=== PATIENT | male | born 1990 | race Caucasian/White ===

== ENCOUNTER 2022-06-01 09:08 | Emergency (ER) | payer OTHER ==
[~2022-06-01] VITALS: Ht 185.4 cm; Wt 74.8 kg
[2022-06-01 09:42] LABS: BASOPHILS ABSOLUTE AUTO 0.04 K/mm3 (0.00-0.23); BASOPHILS PERCENT AUTO 0 % (0-2); EOSINOPHILS ABSOLUTE AUTO 0.01 K/mm3 (0.00-0.68); EOSINOPHILS PERCENT AUTO 0 % (0-6); Hematocrit 47.3 % (37.0-53.0); IMMATURE GRAN ABSOLUTE AUTO 0.07 K/mm3 (0.00-0.10); IMMATURE GRAN PERCENT AUTO 0 % (0-1); LYMPHOCYTES ABSOLUTE AUTO 0.57 K/mm3 (0.84-5.20); LYMPHOCYTES PERCENT AUTO 4 % (21-46); MONOCYTES ABSOLUTE AUTO 1.39 K/mm3 (0.16-1.47); MONOCYTES PERCENT AUTO 9 % (4-13); Mean Corpuscular HGB 34.3 pg (26.0-34.0); Mean Corpuscular HGB Conc 35.9 g/dL (31.5-36.5); Mean Corpuscular Volume 95 fL (80-100); Mean Platelet Volume 11.1 fL (9.1-12.4); NEUTROPHILS ABSOLUTE AUTO 14.22 K/mm3 (1.96-9.15); NEUTROPHILS PERCENT AUTO 87 % (41-73); NRBC ABSOLUTE 0.02 K/mm3 (0.00-0.02); NRBC Auto 0.1 /100 WBC (0.0-0.2); Platelet Count 247 K/mm3 (150-400); RDW Coefficient Variation 11.9 % (11.7-14.2); RDW Standard Deviation 41.4 fL (35.1-46.3); Red Blood Cell Count 4.96 M/mm3 (4.30-5.90)
[2022-06-01 10:01] LABS: Albumin, Blood 5.2 g/dL (3.4-5.0); Albumin/Globulin Ratio 1.1 (0.8-1.8); Bun/Creatinine Ratio 15.5 (12.0-20.0); Calcium, Blood 10.8 mg/dL (8.5-10.1); Creatinine, Blood 1.93 mg/dL (0.60-1.20); Globulin, Blood 4.8 g/dL (2.2-4.0); Potassium, Blood 4.1 mmol/L (3.5-5.5)
[2022-06-01] MEDS ORDERED: FAMO20 PO (12:34)
[2022-06-01] MEDS ORDERED: ONDA4ODT MM (12:34)
== END 2022-06-01 13:05 | disposition home or self-care (01) ==
LOC: ER 09:08
PROVIDERS: Physician Assistant
DX: K29.20 Alcoholic gastritis without bleeding (principal); K70.9 Alcoholic liver disease, unspecified; N17.9 Acute kidney failure, unspecified; E86.0 Dehydration; E87.1 Hypo-osmolality and hyponatremia; E83.42 Hypomagnesemia; F10.20 Alcohol dependence, uncomplicated
CPT/HCPCS: 36415; 80053; 83690; 83735; 85025; J0780; J2405; J3475; J7030

== ENCOUNTER 2022-06-20 04:51 | Emergency (ER) | payer OTHER ==
[~2022-06-20] VITALS: Ht 185.4 cm; Wt 74.8 kg
[~2022-06-20 04:51] MED LIST: FAMO20 PO; ONDA4ODT MM
[2022-06-20 05:23] LABS: BASOPHILS ABSOLUTE AUTO 0.03 K/mm3 (0.00-0.23); BASOPHILS PERCENT AUTO 0 % (0-2); EOSINOPHILS ABSOLUTE AUTO 0.01 K/mm3 (0.00-0.68); EOSINOPHILS PERCENT AUTO 0 % (0-6); Hematocrit 45.1 % (37.0-53.0); Hemoglobin 16.5 g/dL (13.5-17.5); IMMATURE GRAN PERCENT AUTO 1 % (0-1); LYMPHOCYTES ABSOLUTE AUTO 0.34 K/mm3 (0.84-5.20); LYMPHOCYTES PERCENT AUTO 2 % (21-46); MONOCYTES ABSOLUTE AUTO 1.49 K/mm3 (0.16-1.47); MONOCYTES PERCENT AUTO 10 % (4-13); Mean Corpuscular HGB 34.1 pg (26.0-34.0); Mean Corpuscular HGB Conc 36.6 g/dL (31.5-36.5); Mean Corpuscular Volume 93 fL (80-100); Mean Platelet Volume 10.8 fL (9.1-12.4); NEUTROPHILS ABSOLUTE AUTO 13.36 K/mm3 (1.96-9.15); NEUTROPHILS PERCENT AUTO 87 % (41-73); Platelet Count 221 K/mm3 (150-400); RDW Coefficient Variation 11.9 % (11.7-14.2); RDW Standard Deviation 41.1 fL (35.1-46.3); Red Blood Cell Count 4.84 M/mm3 (4.30-5.90); White Blood Cell Count 15.33 K/mm3 (4.00-11.30)
[2022-06-20 05:50] LABS: Alanine Aminotransfer (ALT/SGP 93 U/L (12-78); Albumin, Blood 4.7 g/dL (3.4-5.0); Albumin/Globulin Ratio 1.1 (0.8-1.8); Alk Phos 183 U/L (50-136); Anion Gap 28 mmol/L (6-16); Aspartate Aminotrans (AST/SGOT 83 U/L (12-37); Blood Urea Nitrogen 23 mg/dL (8-24); Bun/Creatinine Ratio 16.5 (12.0-20.0); CO2, Blood 22 mmol/L (21-32); Calcium, Blood 10.1 mg/dL (8.5-10.1); Chloride, Blood 75 mmol/L (98-108); Creatinine, Blood 1.39 mg/dL (0.60-1.20); Ethanol (Alcohol), Blood, Med <3 mg/dL; Globulin, Blood 4.4 g/dL (2.2-4.0); Glomerular Filtration Rate 70 (60-); Glucose, Blood 173 mg/dL (70-99); Potassium, Blood 3.9 mmol/L (3.5-5.5); Sodium, Blood 125 mmol/L (136-145); Total Protein, Blood 9.1 g/dL (6.4-8.2)
[2022-06-20] MEDS ORDERED: ONDA4ODT MM (07:27)
[2022-06-20] MEDS ORDERED: CHLO25 PO (07:27)
[2022-06-20 07:35] VITALS: BP 143/101
[2022-06-21] MEDS ORDERED: PROM12.5S PR (23:35)
== END 2022-06-20 07:38 | disposition home or self-care (01) ==
LOC: ER 04:51
PROVIDERS: Student in an Organized Health Care Education/Training Program
DX: F10.239 Alcohol dependence with withdrawal, unspecified (principal); E86.0 Dehydration; R10.13 Epigastric pain; E87.1 Hypo-osmolality and hyponatremia; R79.89 Other specified abnormal findings of blood chemistry; F17.210 Nicotine dependence, cigarettes, uncomplicated; Y90.0 Blood alcohol level of less than 20 mg/100 ml
CPT/HCPCS: 36415; 80053; 83690; 85025; 93005; 93010; 96361; 96374; 96375; 96376; 99284-25; A9270; G0480; J2060; J2405; J7030

== ENCOUNTER 2022-06-21 19:15 | Emergency (ER) | payer OTHER ==
[~2022-06-21] VITALS: Ht 185.4 cm; Wt 74.8 kg
[~2022-06-21 19:15] MED LIST changes: +CHLO25 PO
[2022-06-21 20:37] LABS: BASOPHILS ABSOLUTE AUTO 0.04 K/mm3 (0.00-0.23); BASOPHILS PERCENT AUTO 1 % (0-2); EOSINOPHILS ABSOLUTE AUTO 0.01 K/mm3 (0.00-0.68); EOSINOPHILS PERCENT AUTO 0 % (0-6); Hematocrit 41.6 % (37.0-53.0); Hemoglobin 15.1 g/dL (13.5-17.5); IMMATURE GRAN ABSOLUTE AUTO 0.04 K/mm3 (0.00-0.10); IMMATURE GRAN PERCENT AUTO 1 % (0-1); LYMPHOCYTES ABSOLUTE AUTO 0.93 K/mm3 (0.84-5.20); LYMPHOCYTES PERCENT AUTO 12 % (21-46); MONOCYTES PERCENT AUTO 10 % (4-13); Mean Corpuscular HGB Conc 36.3 g/dL (31.5-36.5); Mean Corpuscular Volume 94 fL (80-100); Mean Platelet Volume 11.4 fL (9.1-12.4); NEUTROPHILS ABSOLUTE AUTO 6.28 K/mm3 (1.96-9.15); NEUTROPHILS PERCENT AUTO 78 % (41-73); Platelet Count 157 K/mm3 (150-400); RDW Coefficient Variation 11.9 % (11.7-14.2); RDW Standard Deviation 41.4 fL (35.1-46.3); Red Blood Cell Count 4.44 M/mm3 (4.30-5.90)
[2022-06-21 20:56] LABS: Albumin/Globulin Ratio 1.1 (0.8-1.8); Bilirubin, Total 1.3 mg/dL (0.1-1.0); Bun/Creatinine Ratio 25.8 (12.0-20.0); Calcium, Blood 9.7 mg/dL (8.5-10.1); Creatinine, Blood 0.58 mg/dL (0.60-1.20); Globulin, Blood 3.8 g/dL (2.2-4.0); Potassium, Blood 3.1 mmol/L (3.5-5.5); Total Protein, Blood 7.8 g/dL (6.4-8.2)
[2022-06-21] MEDS ORDERED: PROM12.5S PR (23:35)
[2022-06-21 23:45] VITALS: BP 143/99
== END 2022-06-21 23:47 | disposition home or self-care (01) ==
LOC: ER 19:15
PROVIDERS: Student in an Organized Health Care Education/Training Program
DX: R11.2 Nausea with vomiting, unspecified (principal); F17.210 Nicotine dependence, cigarettes, uncomplicated
CPT/HCPCS: 36415; 80053; 85025; 96361; 96374; 99283-25; J2550; J7030

== ENCOUNTER 2022-08-25 07:51 | Emergency (ER) | payer OTHER ==
[~2022-08-25] VITALS: Ht 177.8 cm; Wt 77.1 kg
[~2022-08-25 07:51] MED LIST changes: +PROM12.5S PR
[2022-08-25 08:26] LABS: BASOPHILS ABSOLUTE AUTO 0.06 K/mm3 (0.00-0.23); BASOPHILS PERCENT AUTO 0 % (0-2); EOSINOPHILS PERCENT AUTO 0 % (0-6); Hematocrit 45.7 % (37.0-53.0); Hemoglobin 16.6 g/dL (13.5-17.5); IMMATURE GRAN ABSOLUTE AUTO 0.07 K/mm3 (0.00-0.10); IMMATURE GRAN PERCENT AUTO 1 % (0-1); LYMPHOCYTES ABSOLUTE AUTO 0.66 K/mm3 (0.84-5.20); LYMPHOCYTES PERCENT AUTO 5 % (21-46); MONOCYTES ABSOLUTE AUTO 1.16 K/mm3 (0.16-1.47); MONOCYTES PERCENT AUTO 8 % (4-13); Mean Corpuscular HGB 32.6 pg (26.0-34.0); Mean Corpuscular HGB Conc 36.3 g/dL (31.5-36.5); Mean Corpuscular Volume 90 fL (80-100); Mean Platelet Volume 10.4 fL (9.1-12.4); NEUTROPHILS ABSOLUTE AUTO 12.61 K/mm3 (1.96-9.15); NEUTROPHILS PERCENT AUTO 87 % (41-73); Platelet Count 279 K/mm3 (150-400); RDW Standard Deviation 39.6 fL (35.1-46.3); Red Blood Cell Count 5.09 M/mm3 (4.30-5.90); White Blood Cell Count 14.56 K/mm3 (4.00-11.30)
[2022-08-25 08:44] LABS: Albumin, Blood 4.5 g/dL (3.4-5.0); Bun/Creatinine Ratio 14.9 (12.0-20.0); Creatinine, Blood 0.81 mg/dL (0.60-1.20); Globulin, Blood 4.3 g/dL (2.2-4.0); Potassium, Blood 3.6 mmol/L (3.5-5.5); Total Protein, Blood 8.8 g/dL (6.4-8.2)
[2022-08-25 10:30] VITALS: BP 150/94
[2022-08-25] MEDS ORDERED: CHLO10 PO (10:33)
[2022-08-25] MEDS ORDERED: ONDA4ODT MM (10:33)
== END 2022-08-25 10:54 | disposition home or self-care (01) ==
LOC: ER 07:51
PROVIDERS: Emergency Medicine
DX: F10.239 Alcohol dependence with withdrawal, unspecified (principal); Y90.0 Blood alcohol level of less than 20 mg/100 ml; E87.20 Acidosis, unspecified; Z79.899 Other long term (current) drug therapy; F17.210 Nicotine dependence, cigarettes, uncomplicated
CPT/HCPCS: 80053; 83690; 83735; 85025; 96361; 96374; 96375; 96376; 99284-25; G0480; J2060; J2405; J7030

== ENCOUNTER 2023-08-21 09:20 | Emergency (ER) | payer OTHER ==
[~2023-08-21] VITALS: Ht 185.4 cm; Wt 74.8 kg
[~2023-08-21 09:20] MED LIST changes: +CHLO10 PO
[2023-08-21 09:56] VITALS: BP 140/99
== END 2023-08-21 09:56 | disposition home or self-care (01) ==
LOC: ER 09:20
DX: S96.912A Strain of unspecified muscle and tendon at ankle and foot level, left foot, initial encounter (principal); X50.1XXA Overexertion from prolonged static or awkward postures, initial encounter; Z79.899 Other long term (current) drug therapy; F17.210 Nicotine dependence, cigarettes, uncomplicated
CPT/HCPCS: 99283

== ENCOUNTER 2023-09-03 06:54 | Emergency (ER) | payer OTHER ==
[~2023-09-03] VITALS: Ht 185.4 cm; Wt 74.8 kg
[2023-09-03] MEDS ORDERED: Thiamine HCl 100 MG Tab PO ONE (07:15)
[2023-09-03] MEDS ORDERED: Folic Acid 1 MG TAB PO ONE (07:15)
[2023-09-03] MEDS ORDERED: NS 1,000 ML IV SCH (07:15)
[2023-09-03] MEDS ORDERED: Ondansetron HCl 2 MG / ML 2ML Vial IV ONE (07:15)
[2023-09-03 07:42] LABS: BASOPHILS ABSOLUTE AUTO 0.07 K/mm3 (0.00-0.23); BASOPHILS PERCENT AUTO 1 % (0-2); EOSINOPHILS ABSOLUTE AUTO 0.01 K/mm3 (0.00-0.68); EOSINOPHILS PERCENT AUTO 0 % (0-6); Hematocrit 50.2 % (37.0-53.0); Hemoglobin 17.4 g/dL (13.5-17.5); IMMATURE GRAN ABSOLUTE AUTO 0.03 K/mm3 (0.00-0.10); IMMATURE GRAN PERCENT AUTO 0 % (0-1); LYMPHOCYTES ABSOLUTE AUTO 0.75 K/mm3 (0.84-5.20); LYMPHOCYTES PERCENT AUTO 9 % (21-46); MONOCYTES ABSOLUTE AUTO 0.56 K/mm3 (0.16-1.47); MONOCYTES PERCENT AUTO 7 % (4-13); Mean Corpuscular HGB 33.9 pg (26.0-34.0); Mean Corpuscular HGB Conc 34.7 g/dL (31.5-36.5); Mean Corpuscular Volume 98 fL (80-100); NEUTROPHILS ABSOLUTE AUTO 7.16 K/mm3 (1.96-9.15); NEUTROPHILS PERCENT AUTO 84 % (41-73); Platelet Count 190 K/mm3 (150-400); RDW Standard Deviation 43.8 fL (35.1-46.3); Red Blood Cell Count 5.14 M/mm3 (4.30-5.90); White Blood Cell Count 8.58 K/mm3 (4.00-11.30)
[2023-09-03 08:12] LABS: Albumin, Blood 4.1 g/dL (3.4-5.0); Bilirubin, Direct 0.2 mg/dL (0.0-0.3); Bilirubin, Indirect 0.6 mg/dL (0.1-0.7); Bilirubin, Total 0.8 mg/dL (0.1-1.0); Bun/Creatinine Ratio 10.7 (12.0-20.0); Creatinine, Blood 0.66 mg/dL (0.60-1.20); Globulin, Blood 4.2 g/dL (2.2-4.0); Magnesium, Blood 1.6 mg/dL (1.6-2.4); Potassium, Blood 3.1 mmol/L (3.5-5.5); Total Protein, Blood 8.3 g/dL (6.4-8.2)
[2023-09-03] MEDS ORDERED: Famotidine 10 MG/ML 2ML Vial IV ONE (08:35)
[2023-09-03] MEDS ORDERED: Potassium Chloride 20 MEQ TabCR PO ONE (08:35)
[2023-09-03] MEDS ORDERED: Droperidol 5 mg/2 ml Vial IV ONE (09:20)
[2023-09-03] MEDS ORDERED: FAMO20 PO (10:38)
[2023-09-03] MEDS ORDERED: METO10 PO (10:38)
[2023-09-03] MEDS ORDERED: ONDA4ODT MM (10:38)
[2023-09-03 10:45] VITALS: BP 135/84
== END 2023-09-03 10:52 | disposition home or self-care (01) ==
LOC: ER 06:54
PROVIDERS: Student in an Organized Health Care Education/Training Program
DX: R11.2 Nausea with vomiting, unspecified (principal); F12.90 Cannabis use, unspecified, uncomplicated; K29.70 Gastritis, unspecified, without bleeding; F10.90 Alcohol use, unspecified, uncomplicated; E87.6 Hypokalemia; R74.01 Elevation of levels of liver transaminase levels; F17.210 Nicotine dependence, cigarettes, uncomplicated; Z79.899 Other long term (current) drug therapy
CPT/HCPCS: 80048; 80076; 83690; 83735; 85025; 96361; 96374; 96375; 99284-25; A9270; J1790; J2405; J7030

== ENCOUNTER 2023-09-23 08:29 | Emergency (ER) | payer OTHER ==
[~2023-09-23] VITALS: Ht 185.4 cm; Wt 74.8 kg
[~2023-09-23 08:29] MED LIST changes: +METO10 PO
[2023-09-23] MEDS ORDERED: IBUP600 PO (09:50)
[2023-09-23] MEDS ORDERED: Norco 5-325 Ta1 EACH PO (09:50)
[2023-09-23 10:14] VITALS: BP 150/90
== END 2023-09-23 10:15 | disposition home or self-care (01) ==
LOC: ER 08:29
DX: M25.572 Pain in left ankle and joints of left foot (principal); F17.210 Nicotine dependence, cigarettes, uncomplicated; Z79.899 Other long term (current) drug therapy
CPT/HCPCS: 73610; 99283-25

== ENCOUNTER 2024-01-26 10:02 | Inpatient (IN) | payer OTHER ==
[~2024-01-26] VITALS: Ht 185.4 cm; Wt 83.0 kg
[2024-01-26] VITALS (16 sets, daily range): BP systolic 100–135; BP diastolic 59–90
[~2024-01-26 10:02] MED LIST changes: +IBUP600 PO; +Norco 5-325 Ta1 EACH PO
[2024-01-26] MEDS ORDERED: Ondansetron HCl 2 MG / ML 2ML Vial IV PRN ×2 (11:10→16:55)
[2024-01-26 11:50] LABS: BASOPHILS ABSOLUTE AUTO 0.16 K/mm3 (0.00-0.23); BASOPHILS PERCENT AUTO 1 % (0-2); EOSINOPHILS ABSOLUTE AUTO 0.02 K/mm3 (0.00-0.68); EOSINOPHILS PERCENT AUTO 0 % (0-6); Hematocrit 35.5 % (37.0-53.0); Hemoglobin 13.3 g/dL (13.5-17.5); IMMATURE GRAN PERCENT AUTO 1 % (0-1); LYMPHOCYTES ABSOLUTE AUTO 0.83 K/mm3 (0.84-5.20); LYMPHOCYTES PERCENT AUTO 5 % (21-46); MONOCYTES ABSOLUTE AUTO 1.39 K/mm3 (0.16-1.47); MONOCYTES PERCENT AUTO 8 % (4-13); Mean Corpuscular HGB 37.2 pg (26.0-34.0); Mean Corpuscular HGB Conc 37.5 g/dL (31.5-36.5); Mean Corpuscular Volume 99 fL (80-100); NEUTROPHILS PERCENT AUTO 86 % (41-73); NRBC ABSOLUTE 0.03 K/mm3 (0.00-0.02); NRBC Auto 0.2 /100 WBC (0.0-0.2); Platelet Count 161 K/mm3 (150-400); Red Blood Cell Count 3.58 M/mm3 (4.30-5.90)
[2024-01-26 12:11] LABS: International Normalized Ratio 1.54
[2024-01-26 12:20] LABS: Albumin, Blood 2.3 g/dL (3.4-5.0); Albumin/Globulin Ratio 0.5 (0.8-1.8); Bun/Creatinine Ratio 14.9 (12.0-20.0); Calcium, Blood 8.3 mg/dL (8.5-10.1); Creatinine, Blood 0.47 mg/dL (0.60-1.20); Globulin, Blood 4.4 g/dL (2.2-4.0); Potassium, Blood 2.5 mmol/L (3.5-5.5); Total Protein, Blood 6.7 g/dL (6.4-8.2)
[2024-01-26] MEDS ORDERED: CefTRIAXone Sodium 2,000 MG in NS 100 ML IV ONE (12:50)
[2024-01-26] MEDS ORDERED: Pantoprazole Sodium 40 MG Injection IV ONE ×2 (12:50→17:50)
[2024-01-26] MEDS ORDERED: Octreotide Acetate 500 MCG in NS 250 ML IV SCH (13:00)
[2024-01-26] MEDS ORDERED: FentaNYL Citrate 50 MCG/ML 2 ML Injection IV ONE (13:10)
[2024-01-26] MEDS ORDERED: Octreotide Acetate 50 MCG in NS 50 ML IV ONE (13:20)
[2024-01-26] MEDS ORDERED: Ondansetron HCl 2 MG / ML 2ML Vial IV ONE (13:55)
[2024-01-26] MEDS ORDERED: Potassium Chloride 60 MEQ IV SCH (14:10)
[2024-01-26] MEDS ORDERED: Potassium Chl 20MEQ/Water100ML 100 ML IV SCH (14:15)
[2024-01-26] MEDS ORDERED: FLU VACC TS2024-25(6MOS UP)/PF 45 MCG/0.5 ML SYRINGE IM ONE (14:30)
[2024-01-26] MEDS ORDERED: Lactated Ringer's 1,000 ML IV ONE (14:35)
[2024-01-26] MEDS ORDERED: Lactated Ringer's 1,000 ML IV SCH ×2 (14:35→18:55)
[2024-01-26] MEDS ORDERED: Pantoprazole Sodium 40 MG in NS 50 ML IV SCH ×2 (14:35→17:55)
[2024-01-26] MEDS ORDERED: LORazepam 2 MG/ML 1ML Injection IV PRN ×3 (16:55→17:00)
[2024-01-26] MEDS ORDERED: ChlordiazePOXIDE 25 MG Cap PO PRN ×2 (16:55→17:00)
[2024-01-26 17:36] LABS: Hematocrit 31.4 % (37.0-53.0); Hemoglobin 11.7 g/dL (13.5-17.5)
[2024-01-26] MEDS ORDERED: Folic Acid 1 MG in NS 50 ML IV SCH (18:00)
--- NOTE | 2024-01-26 18:24 | NUR ---
LACTIC OF 8.5, SECOND BAG OF LR RUNNING AT THIS TIME. DR. GIORDANO NOTIFIED. INTERIOR DESIGN PROFESSOR NOTIFIED.
--- NOTE | 2024-01-26 18:44 | NUR ---
SHIFT SUMMARY ASSUMED CARE OF THIS PATIENT AT 1630. PATIENTARRIVED FROM THE ED ON A GUARNY. PATIENT SAT UP AT THE EDGE OF THE BED AND WAS ABLE TO STAND AND TRANSFER TO PCU BED. PATIENT STATED HE FEELS WEAK AND UNSTEADY. PATIENT HAS REMAINED IN BED SINCE ARRIVAL. TELE IN PLACE, SINUS TACH ON THE MONITOR. PATIENT VOMITTING BRIGHT RED BLOOD X8 SINCE ARRIVING FROM THE ED. DR. HERNANDEZ NOTIFIED OF PATIENT CONDITION AND SHOWN EMESIS. DAY SURGERY CALLED THIS RN TO GET REPORT ON PATIENT, HE IS TO GO TO THE OR STAT. PATIENT MOM AT BEDSIDE, CALL LIGHT IN REACH, WILL CONTINUE TO TREAT,
[2024-01-26] MEDS ORDERED: EpiNEPhrine 1 MG/1 ML 1ML Vial ONE (18:46)
[2024-01-26] MEDS ORDERED: propofoL 20 ML IV ONE (18:56)
[2024-01-26] MEDS ORDERED: Dexamethasone Sod Phos 10 MG/ML 1ML VIAL ONE (18:56)
[2024-01-26] MEDS ORDERED: Ondansetron HCl 2 MG / ML 2ML Vial ONE (18:56)
[2024-01-26] MEDS ORDERED: Rocuronium Bromide 10 MG/ML 5ML Injection IV ONE (18:56)
[2024-01-26] MEDS ORDERED: Lidocaine HCl 2% 20 ML MDV ONE (18:56)
[2024-01-26] MEDS ORDERED: FentaNYL Citrate 50 MCG/ML 2 ML Injection ONE ×2 (18:57→20:12)
[2024-01-26] MEDS ORDERED: Sugammadex Sodium 200 MG/2ML SDV (100 MG/ML) ONE (18:57)
--- NOTE | 2024-01-26 19:08 | NUR ---
NURSE NOTE PATIENT TO DAY SURGERY.
[2024-01-26] MEDS ORDERED: Dexmedetomidine HCL 200 MCG / 2 ML ONE (19:16)
--- NOTE | 2024-01-26 19:16 | NUR ---
NURSE NOTE REPORT GIVEN TO BENJAMÍN ALEXANDER.
[2024-01-26] MEDS ORDERED: Phenylephrine HCl 100 MCG/ML-NS 10MLSYR (1MG/10ML) ONE (19:29)
--- NOTE | 2024-01-26 19:53 | NUR ---
01/26/241952 Jo Pedro History, Chart, Medications and Allergies reviewed before start of procedure. 3-LEAD EKG REVIEWED WITH PHYSICIAN PRIOR TO START OF PROCEDURE. MONITOR INTACT WITH CONTINUOUS PULSE OXIMETRY, CONTINUOUS END TITAL CO2, AND INTERMITTENT BLOOD PRESSURE. SEE ANESTHESIA NOTES. PROCEDURE DONE IN OR #2.
[2024-01-26] MEDS ORDERED: dexmedeTOMIDine 100 ML IV SCH (20:05)
[2024-01-26] MEDS ORDERED: Thiamine HCl 500 MG in NS 100 ML IV SCH (21:00)
[2024-01-26] MEDS ORDERED: Sodium Chloride 0.45% 1,000 ML IV SCH (22:00)
--- NOTE | 2024-01-26 22:40 | NUR ---
ARRIVAL TO ICU PT ARRIVED TO ICU 5 AT 2030 FROM DAY SURGERY AFTER HAVING AN UPPER SCOPE PROCEDURE. HE IS HERE FOR GI BLEED AND WAS ABLE TO MOVE HIMSELF OVER FROM THE ED BED TO ICU BED. HE IS ORIENTED X4 BUT SOMNULENT FROM PROCEDURE; HE WAKES TO VERBAL STIMULI; DR HERNANDEZ WANTS PRECEDEX STARTED TO MANAGE WITHDRAWL SYMPTOMS AND RECOMMENDED AVOIDING (IF ABLE) NARCOTICS AND BENZOS D/T LIVER FUNTION; PRECEDEX STARTED AT 0.1MCG/KG/HR; RASS -1; CIWA 7. SPO2 >95% ON 3L NC. AFEBRILE. HR 80-90'S. SBP 100-110, WITH MAP >65. ONE EPISODE OF EMESIS UPON ARRIVAL TO ICU THAT WAS BRIGHT RED IN COLOR MIXED WITH MUCUS; NAUSEA MORE MILD NOW BUT STILL PRESENT; MOD TO SEVERE FIRM ABD DISTENTION; DR HERNANDEZ STATED TO PLAN FOR A PARACENTESIS TOMORROW. MILD JAUNDICED NOTED ALONG WITH SCLERAL EDEMA. OCTREOTIDE AND PROTONIX INFUSING. 1/2 NS STARTED AT 100ML/HR. KCL INFUSION COMPLETED NOW. ADDITIONAL IV ESTABLISHED D/T MED COMPATABILITIES. SEE SHIFT ASSESSMENT FOR FULL ASSESSMENT.
[2024-01-26 23:58] LABS: Calcium, Blood 7.2 mg/dL (8.5-10.1); Creatinine, Blood 0.53 mg/dL (0.60-1.20); Magnesium, Blood 1.5 mg/dL (1.6-2.4); Potassium, Blood 3.6 mmol/L (3.5-5.5)
[2024-01-27] VITALS (30 sets, daily range): BP systolic 96–128; BP diastolic 64–95
[2024-01-27 00:03] LABS: Hematocrit 26.1 % (37.0-53.0)
[2024-01-27] MEDS ORDERED: Metoclopramide HCl 5MG / ML 2ML Vial IV PRN (03:30)
[2024-01-27 03:44] LABS: BASOPHILS ABSOLUTE AUTO 0.04 K/mm3 (0.00-0.23); BASOPHILS PERCENT AUTO 0 % (0-2); EOSINOPHILS ABSOLUTE AUTO 0.14 K/mm3 (0.00-0.68); EOSINOPHILS PERCENT AUTO 1 % (0-6); Hematocrit 27.3 % (37.0-53.0); Hemoglobin 10.2 g/dL (13.5-17.5); IMMATURE GRAN ABSOLUTE AUTO 0.09 K/mm3 (0.00-0.10); IMMATURE GRAN PERCENT AUTO 1 % (0-1); LYMPHOCYTES ABSOLUTE AUTO 0.43 K/mm3 (0.84-5.20); LYMPHOCYTES PERCENT AUTO 4 % (21-46); MONOCYTES ABSOLUTE AUTO 0.34 K/mm3 (0.16-1.47); MONOCYTES PERCENT AUTO 3 % (4-13); Mean Corpuscular HGB Conc 37.4 g/dL (31.5-36.5); Mean Corpuscular Volume 99 fL (80-100); Mean Platelet Volume 12.1 fL (9.1-12.4); NEUTROPHILS ABSOLUTE AUTO 11.06 K/mm3 (1.96-9.15); NEUTROPHILS PERCENT AUTO 91 % (41-73); NRBC ABSOLUTE 0.02 K/mm3 (0.00-0.02); NRBC Auto 0.2 /100 WBC (0.0-0.2); Platelet Count 91 K/mm3 (150-400); RDW Coefficient Variation 18.8 % (11.7-14.2); RDW Standard Deviation 67.1 fL (35.1-46.3); Red Blood Cell Count 2.76 M/mm3 (4.30-5.90)
[2024-01-27 04:00] LABS: International Normalized Ratio 1.67; Prothrombin Time Results 17.2 Sec (9.7-11.5)
[2024-01-27 04:08] LABS: Albumin, Blood 1.8 g/dL (3.4-5.0); Albumin/Globulin Ratio 0.5 (0.8-1.8); Bilirubin, Total 13.7 mg/dL (0.1-1.0); Bun/Creatinine Ratio 20.7 (12.0-20.0); Calcium, Blood 7.5 mg/dL (8.5-10.1); Creatinine, Blood 0.58 mg/dL (0.60-1.20); Globulin, Blood 3.5 g/dL (2.2-4.0); Potassium, Blood 3.4 mmol/L (3.5-5.5); Total Protein, Blood 5.3 g/dL (6.4-8.2)
--- NOTE | 2024-01-27 06:46 | NUR ---
END OF SHIFT SUMMARY NO ACUTE EVENTS OVERNIGHT. PT SLEPT WHEN NOT STIMULATED. HE CONT TO BE A/O X4 AND ABLE TO MAKE HIS NEEDS KNOWN; CIWA 9-18; PRECEDEX INFUSING AT 0.2MCG/KG/HR. SPO2 > 94% ON 3L NC. AFEBRILE. HR 80'S. SBP 110'S. NAUSEA CONT WITH MILD IMPROVEMENT AFTER ZOFRAN AND REGLAN; TOLERATING SMALL SIPS OF WATER WELL; NO EPISODES OF EMESIS SINCE ARRIVAL TO ICU; ABD CONT TO BE DISTENDED. BLADDER SCANNED ONCE AND READ 489; ENCOURAGED PT TO USE URINAL WHICH HE WAS SUCCESSFUL; DARK BROWN LIKE OUTPUT. CONT TO BE JAUNDICED. PROTONIX AND OCTRIOTIDE INFUSING. 1/2NS INFUSING AT 100ML/HR. WILL REPORT TO AM RN WHEN AVAILABLE.
[2024-01-27] MEDS ORDERED: NS 250 ML IV PRN (08:40)
[2024-01-27] MEDS ORDERED: CefTRIAXone Sodium 1,000 MG in NS 100 ML IV SCH (09:00)
[2024-01-27] MEDS ORDERED: Potassium Chl 20MEQ/Water100ML 100 ML IV STA (09:46)
[2024-01-27] MEDS ORDERED: FentaNYL Citrate 50 MCG/ML 2 ML Injection IV PRN (12:00)
[2024-01-27] MEDS ORDERED: Promethazine HCl 25 MG Tab PO PRN (12:00)
--- NOTE | 2024-01-27 18:13 | NUR ---
SHIFT SUMMARY CIWA HIGH OF 11 TODAY. PRECEDEX UTILIZED. MEDICATED MULTIPLE TIMES FOR NAUSEA AND EMESIS, PHENEGRAN ADDED WITH GOOD EFFECT. PATIENT AND MOTHER INFORMED THIS RN THAT PATIRYANN HAS A HISTORY OF BIPOLAR DISORDER AND DEPRESSION, PATIENT STOPPED TAKING MEDS DUE TO SIDE EFFECTS. PATIENT IS EXPRESSING INTREST IN A DUAL PSYCH AND ETOH WITHDRAWL INPATIENT PROGRAM AFTER DISCHARGE. CASE MANAGEMENT INVOLVED, SEEN BY ADAPT, PSYCH CONSULT PLACED. NO SIGNS OF ACTIVE BLEED, H/H STABLE. URINE OUTPUT LOW AND VERY CONCENTRATED.
[2024-01-28] VITALS (22 sets, daily range): BP systolic 101–157; BP diastolic 61–106
[2024-01-28 03:50] LABS: BASOPHILS ABSOLUTE AUTO 0.03 K/mm3 (0.00-0.23); BASOPHILS PERCENT AUTO 0 % (0-2); EOSINOPHILS ABSOLUTE AUTO 0.03 K/mm3 (0.00-0.68); EOSINOPHILS PERCENT AUTO 0 % (0-6); Hematocrit 27.8 % (37.0-53.0); Hemoglobin 10.3 g/dL (13.5-17.5); IMMATURE GRAN ABSOLUTE AUTO 0.06 K/mm3 (0.00-0.10); IMMATURE GRAN PERCENT AUTO 1 % (0-1); LYMPHOCYTES ABSOLUTE AUTO 0.78 K/mm3 (0.84-5.20); LYMPHOCYTES PERCENT AUTO 6 % (21-46); MONOCYTES ABSOLUTE AUTO 0.93 K/mm3 (0.16-1.47); MONOCYTES PERCENT AUTO 7 % (4-13); Mean Corpuscular HGB 36.9 pg (26.0-34.0); Mean Corpuscular HGB Conc 37.1 g/dL (31.5-36.5); Mean Corpuscular Volume 100 fL (80-100); Mean Platelet Volume 12.5 fL (9.1-12.4); NEUTROPHILS ABSOLUTE AUTO 10.87 K/mm3 (1.96-9.15); NEUTROPHILS PERCENT AUTO 86 % (41-73); NRBC ABSOLUTE 0.04 K/mm3 (0.00-0.02); NRBC Auto 0.3 /100 WBC (0.0-0.2); Platelet Count 86 K/mm3 (150-400); RDW Coefficient Variation 18.5 % (11.7-14.2); RDW Standard Deviation 67.2 fL (35.1-46.3); Red Blood Cell Count 2.79 M/mm3 (4.30-5.90)
[2024-01-28 04:02] LABS: International Normalized Ratio 1.92; Prothrombin Time Results 19.6 Sec (9.7-11.5)
[2024-01-28 04:25] LABS: Albumin, Blood 1.7 g/dL (3.4-5.0); Albumin/Globulin Ratio 0.5 (0.8-1.8); Bilirubin, Total 14.3 mg/dL (0.1-1.0); Calcium, Blood 7.3 mg/dL (8.5-10.1); Creatinine, Blood 0.6 mg/dL (0.60-1.20); Globulin, Blood 3.2 g/dL (2.2-4.0); Potassium, Blood 3.4 mmol/L (3.5-5.5); Total Protein, Blood 4.9 g/dL (6.4-8.2)
--- NOTE | 2024-01-28 06:29 | NUR ---
END OF SHIFT SUMMARY NO ACUTE EVENTS OVERNIGHT. HE WAS ABLE TO SLEEP FOR MOST OF THE NIGHT BUT WOKE EASILY TO VERBAL STIMULI; CONT TO BE A/O X4 AND ABLE TO MAKE HIS NEEDS KNOWN; PRECEDEX INFUSING AT 0.2MCG/KG/HR; CIWA CONSISTANTLY 11 T/O THE NIGHT. SPO2 >95% ON 4L NC. AFEBRILE. HR 70'S; WITH ACTIVITY, HR INCREASES TO 130'S. SBP 110-120'S. MILD NAUSEA NOTED ALL NIGHT; PRN GIVEN AND MILDLY HELPFUL; NO EPISODES OF EMESIS THIS SHIFT; CONT TO TOLERATE WATER SUCCESSFULLY. PT ABLE TO USE URINAL INDEPENDENTLY. JAUNDICE NOTED T/O. PROTONIX AND OCTRIOTIDE INFUSING. 1/2NS INFUSING AT 100ML/HR. WILL REPORT TO AM RN WHEN AVAILABLE.
--- NOTE | 2024-01-28 08:00 | NUR ---
AM NOTE... ASSUMED CARE OF PT AT 0700, PT IS A&Ox4 CURRENTLY HE IS IN SR/ST 90'S-100'S BP IS STABLE. PT WAS ON 4L NC WITH O2 SATS 85-89% O2 WAS INCREASED TO 6L NC WITH O2 SATS >90%. L/S ARE CLEAR AND DIM T/O, NO CRACKELS/RHONCHI NOTED. I.S. WAS GIVEN TO THE PT AND PT EDUCATED AND ENCOURAGED TO USE FREQUENTLY. BT PRESENT AND HYPOACTIVE, ABD IS FIRM AND TENDER TO PALPATION WITH MODERATE DISTENTION. PT C/O OF NAUSEA WITH NO VOMITING AT THIS TIME. PT IS ON PRECEDEX DRIP RUNNING AT 0.2MCG/KG/HR, PT C/O OF A 7/10 HEADACHE AND IS SLIGHTLY TREMULOUS. PROVIDER WAS AT THE BEDSIDE TO ASSESS THE PT, SHE WAS UPDATED ON THE PT'S INCREASED O2 NEEDS, NEW ORDERS TO D/C THE FLUIDS AND TO CONTINUE TO MONITOR AT THIS TIME. WILL CONTINUE TO MONITOR.
[2024-01-28] MEDS ORDERED: Potassium Chl 20MEQ/Water100ML 100 ML IV STA (09:08)
[2024-01-28] MEDS ORDERED: Fluticasone 0.05% Nasal Spray SCH (11:30)
[2024-01-28] MEDS ORDERED: Furosemide 10 MG/ML 4ML Vial IV ONE (14:55)
[2024-01-28] MEDS ORDERED: Prochlorperazine Edisylate 10 mg Vial IV PRN (16:35)
--- NOTE | 2024-01-28 16:41 | NUR ---
PROVIDER AT THE BEDSIDE... GI PROVIDER AT THE BEDSIDE TO ASSESS THE PT, NEW ORDERS FOR COMPAZINE GIVEN, PER PROVIDER THE PT NEEDS TO BE CAREFUL WITH PO INTAKE D/T POSITIVE FLUID BALANCE. WILL CONTINUE TO MONITOR.
[2024-01-28 17:14] LABS: Bun/Creatinine Ratio 14.5 (12.0-20.0); Calcium, Blood 7.9 mg/dL (8.5-10.1); Creatinine, Blood 0.69 mg/dL (0.60-1.20); Potassium, Blood 2.9 mmol/L (3.5-5.5)
--- NOTE | 2024-01-28 17:20 | NUR ---
SHIFT SUMMARY PT IS A&OX4, RESPONDING AND CALLING APPROPRIATLY. BECOMING INCREASING AGITATED AND ANXIOUS T/O THIS SHIFT. LAST CIWA SCORE 26. TREMULOUS AND DIAPHORETIC. C/O HEADACHE T/O SHIFT, MEDICATED PER EMAR WITH RELIEF. WARM BLANKET TO FEET AND COLD CLOTH TO BACK OF NECK TO HELP WELL. ON CONTINUOUS VERMIN EXTERMINATOR, HR 80-90'S WHILE LYING DOWN. HR 130'S WHEN OOB. MAPS > 65. L/S CLEAR AND DIM. ON 6L NC WITH SATS IN THE LOW 90'S. REPORTS INTERMITTENT SOB. INCENTIVE SPIROMETER PROVIDED AND ENCOURAGED TO USE. NOT TOLERATING PO INTAKE, N/V X4 TODAY, MEDICATED PER EMAR WITH SOME RELIEF. NO BLOOD IN EMESIS. STOOL X1 THIS SHIFT. USES URINAL AT BEDSIDE INDEPENDENTLY. DIURESED X1 THIS SHIFT. PG PLACED AND PATENT.
[2024-01-28] MEDS ORDERED: Potassium Chl 20MEQ/Water100ML 100 ML IV SCH (17:55)
[2024-01-28] MEDS ORDERED: LORazepam 2 MG/ML 1ML Injection IV PRN (17:55)
[2024-01-28] MEDS ORDERED: QUEtiapine Fumarate 50 MG TAB PO ONE (20:05)
--- NOTE | 2024-01-28 23:23 | NUR ---
UPDATE ASSUMED CARE OF PT AT 1900, PT AWAKE AND ALERT, RESTLESS, TALKING TO UNSEEN OTHERS IN ROOM, HEARING PARENTS OUTSIDE OF ROOM AND SEEING SPOTS OF BLOOD ON HIS BLANKET, ORIENTED TO SELF ONLY, FOLLOWS COMMANDS, NEEDS FREQUENT REORIENTATION AND REDIRECTION, PT IMPULSIVE, GETTING OUT OF BED AND PULLING ON LINES,VSS, AFEBRILE,O2 AT 6LPM NC, MEDICATED WITH 25 MCG FENTANYL FOR HEADACHE RATED AT 8 ON SCALE OF 0-10 AT 1940 PARTIALLY EFFECTIVE, NOTIFIED WITH NEW ORDERS RECEIVED, CIWA 26 AT BEGINNING OF SHIFT, MEDICATED WITH 50 MG SEROQUEL PO, PT SWALLOWED WITHOUT DIFFICULTY, PRECEDEX INFUSING AT 0.7 MCG/KG/HR, PROTONIX INFUSING AT 8MG/HR, OCTREOTIDE INFUSING AT 25 ML/HR, KCL REPLACEMENT INFUSING PER ORDERS, PIV TO RIGHT AC, RIGHT HAND, AND POWERGLIDE TO LEFT UPPER ARM PATENT, VOIDS IN URINAL 150 ML DARK SAIRA URINE, PT BECAME RESTLESS, ATTEMPTING TO GET OUT OF BED, WANTING PERSONAL BAGS TO GET DRESSED STATING HIS MOM IS THERE TO PICK HIM UP AND ASKING WHERE HE IS AT 2214, CIWA 29, MEDICATED WITH 1 MG ATIVAN IVP. ATIVAN EFFECTIVE AT THIS TIME, PT RESTING IN BED WITH EYES CLOSED NO DISTRESS NOTED, BED ALARM ON, SIDE RAILS UP X2 CALL LIGHT IN REACH
[2024-01-29] VITALS (20 sets, daily range): BP systolic 92–137; BP diastolic 67–106
[2024-01-29 03:23] LABS: ALPHA-1-ANTITRYPSIN 222 mg/dL (90-200)
--- NOTE | 2024-01-29 03:34 | NUR ---
UPDATE 304 PT AWAKE AND CONFUSED, OUT OF BED, REMOVING TELEMETRY LINES AND PULLING ON IV LINES, INCONTINENT OF URINE, UNSTEADY GAIT, ASSISTED PT TO SITTING ON BSC, GOWN AND SHEETS CHANGED, PERICARE DONE, ASSISTED PT BACK TO BED, TELEMETRY PADS REPLACED, ATTEMPTS TO REORIENT PT TO PLACE AND SITUATION UNSUCCFUL, PT CONTINUES TO TRY TO GET OUT OF BED AND REMOVING LINES AND CORDS SOON THEY ARE REPLACED, [facility] 26 307 MEDICATED WITH 1 MG ATIVAN IVP PER PRN ORDERS, ATIVAN EFFECTIVE, SIDE RAILS UP X2, BED ALARM CARPENTERS LIGHT IN REACH
[2024-01-29 03:49] LABS: Hematocrit 29.6 % (37.0-53.0); Hemoglobin 10.9 g/dL (13.5-17.5); Mean Corpuscular HGB 37.6 pg (26.0-34.0); Mean Corpuscular HGB Conc 36.8 g/dL (31.5-36.5); Mean Corpuscular Volume 102 fL (80-100); NRBC ABSOLUTE 0.03 K/mm3 (0.00-0.02); NRBC Auto 0.2 /100 WBC (0.0-0.2); Platelet Count 87 K/mm3 (150-400); RDW Coefficient Variation 18.8 % (11.7-14.2); RDW Standard Deviation 70.1 fL (35.1-46.3); White Blood Cell Count 12.43 K/mm3 (4.00-11.30)
[2024-01-29 04:02] LABS: International Normalized Ratio 2.27; Prothrombin Time Results 22.9 Sec (9.7-11.5)
[2024-01-29 04:29] LABS: Albumin, Blood 1.9 g/dL (3.4-5.0); Albumin/Globulin Ratio 0.5 (0.8-1.8); Bilirubin, Total 18.7 mg/dL (0.1-1.0); Bun/Creatinine Ratio 17.2 (12.0-20.0); Calcium, Blood 8.1 mg/dL (8.5-10.1); Creatinine, Blood 0.58 mg/dL (0.60-1.20); Globulin, Blood 3.6 g/dL (2.2-4.0); Potassium, Blood 3.5 mmol/L (3.5-5.5); Total Protein, Blood 5.5 g/dL (6.4-8.2)
[2024-01-29 04:33] LABS: FACTIN SMOOTH MUSCLE,IGG ELISA 6 Units (0-19)
--- NOTE | 2024-01-29 04:39 | NUR ---
UPDATE POTASSIUM 3.5 THIS AM, CALLED AND SPOKE WITH DR NESS TO NOTIFY OF RESULTS WITH GOAL OF POTASSIUM >4.0, NEW ORDERS RECEIVED
[2024-01-29] MEDS ORDERED: Potassium Chloride 60 MEQ IV ONE (04:45)
[2024-01-29 04:48] LABS: BAND PERCENT MAN 1 % (0-8); BASOPHILS ABSOLUTE MAN 0.12 K/mm3 (0.00-0.23); BASOPHILS PERCENT MAN 1 % (0-2); EOSINOPHILS ABSOLUTE MAN 0.37 K/mm3 (0.00-0.68); EOSINOPHILS PERCENT MAN 3 % (0-6); LYMPHOCYTES ABSOLUTE MAN 1.24 K/mm3 (0.84-5.20); LYMPHOCYTES PERCENT MAN 10 % (21-46); MONOCYTES ABSOLUTE MAN 0.62 K/mm3 (0.16-1.47); MONOCYTES PERCENT MAN 5 % (4-13); MYELOCYTE ABSOLUTE MAN 0.12 K/mm3 (0.00-0.00); MYELOCYTE PERCENT MAN 1 % (0-0); NEUTROPHILS ABSOLUTE MAN 9.94 K/mm3 (1.96-9.15); SEG NEUTROPHILS PERCENT MAN 79 % (41-73); TOTAL CELLS COUNTED 100
[2024-01-29] MEDS ORDERED: Potassium Chl 20MEQ/Water100ML 100 ML IV SCH ×2 (05:05→23:55)
[2024-01-29 05:13] LABS: ANTI-NUCLEAR AB ANA,IGG ELISA None Detected (None Detected)
--- NOTE | 2024-01-29 06:19 | NUR ---
SHIFT SUMMARY PT ALERT AND CONFUSED THIS SHIFT , CIWA SCORE OF 26-29, ATIVAN 1 MG IVP X2, PT IMPULSIVE AND FORGETFUL, VSS, AFEBRILE, SR 70-90S BPM, PT REDIRECTABLE WITH NEED FOR FREQUENT REMINDERS AND REDIRECTION WHEN AWAKE, PRECEDEX TITRATED PER ORDERS NEEDED, BED ALARM ON, SIDE RAILS UP X2 CALL LIGHT IN REACH
[2024-01-29 08:21] LABS: HEPATITIS B SURFACE ANTIBODY <3.10 IU/L
[2024-01-29] MEDS ORDERED: Sodium Phosphate 30 MM in Dextrose 5% 500 ML IV STA (08:44)
[2024-01-29 08:50] LABS: HEPATITIS B SURFACE ANTIGEN Negative (Negative)
[2024-01-29] MEDS ORDERED: Fluticasone 0.05% Nasal Spray SCH (09:00)
--- NOTE | 2024-01-29 09:57 | NUR ---
ASSUMED CARE PT RESTING IN BED, BREATHS ARE EVEN AND UNLABORED. PRECEDEX INFUSING AT 0.7 MCG/KG/H. ON CONTINUOUS TRAPPER BIRD, HR 80'S. BP STABLE. MAPS > 65. ON 9L NC, L/S CLEAR AND DIM IN BASES. CONDOM CATH PLACED. BED ALARM ON FOR SAFETY.
[2024-01-29 10:17] LABS: HEPATITIS C AB CIA INTERP Negative (Negative); HEPATITIS C ANTIBODY CIA INDEX 0.15 IV
[2024-01-29 10:19] LABS: HBV CORE ANTIBODIES,TOTAL Negative (Negative)
[2024-01-29 10:25] LABS: HEPATITIS A ANTIBODIES, TOTAL Positive (Negative)
[2024-01-29] MEDS ORDERED: Azithromycin 500 MG in NS 250 ML IV SCH (12:00)
--- NOTE | 2024-01-29 17:16 | NUR ---
Met with pt's mom at bedside after a chart review and discussion with DIRECTOR GLOBAL INTELLIGENCE. Pt's MELD score around 26. His mom Dewayne (alana Regalado) states she is feeling quite worried, states she recognizes how serious this is. Pt is currently sedated on precedex and lorazepam as he is withdrawing from ETOH. He has a long, chronic history of drinking. He is currently battling with both acute alcoholic hepatitis and cirrhosis. Also has "clinically significant" portal hyptertension from alcohol use. Currently on 9L 02. He is being followed by keypuncher, GI and hospitalist. Pt's mom asked if he will remain in ICU over the weekend. I told her I suspect he will be there much longer. She again stated concern, asking, "How bad is this?" Reminded her the physicians have said it is very serious, and she became tearful. She declined having any questions, instead talking about her 3 sons, stating her sons have been estranged for a few years, and she was always worried it would take "standing over a hospital bed" for them to revive their relationships. Pt's brother Jax arrived at the end of our chat, so I asked if I could come visit again tomorrow. Dewayne states that would be very nice. Plan to continue with supportive visits for family for now.
--- NOTE | 2024-01-29 17:23 | NUR ---
SHIFT SUMMARY PT IS LETHARGIC, RESPONDS TO VERBAL STIMULI. COMPULSIVE BUT REDIRECTABLE. PRECEDEX INFUSING AT 0.8 MCG/KG/HR. ATIVAN PRN X2 THIS SHIFT. L/S CLEAR AND DIM, ON 9L NC WITH SATS IN THE 90'S. DENIES SOB. ON CONTINUOUS MARKER MACHINE, HR 60-70'S, MAPS > 65, BP STABLE. ABD DISTENDED AND TENDER. TOLERATING ICE CHIPS AND SIPS OF WATER. NO EMESIS OR BM THIS SHIFT. CONDOM CATH IN PLACE AND DRAINING. NO SKIN BREAKDOWN NOTED ON ASSESSMENT. SKIN AND SCLERA ARE JAUNDICED. PICC PLACED THIS SHIFT W/ GTTS INFUSING. POWERGLIDE PATENT AND SALINE LOCKED.
[2024-01-29] MEDS ORDERED: Sodium Phosphate 30 MM in Dextrose 5% 500 ML IV ONE (17:35)
[2024-01-29] MEDS ORDERED: Albumin (Human) 25gm/100ml 100 ML IV SCH (17:40)
[2024-01-29] MEDS ORDERED: Potassium Chl 20MEQ/Water100ML 100 ML IV ONE (17:40)
[2024-01-29] MEDS ORDERED: Pantoprazole Sodium 40 MG Injection IV SCH (21:00)
[2024-01-29 23:07] LABS: Potassium, Blood 3.3 mmol/L (3.5-5.5)
[2024-01-29] MEDS ORDERED: Potassium Chloride 40 MEQ IV SCH (23:45)
[2024-01-30] VITALS (25 sets, daily range): BP systolic 107–133; BP diastolic 79–101
[2024-01-30 00:36] LABS: Phosphorus, Blood 2.5 mg/dL (2.5-4.9)
[2024-01-30 05:30] LABS: BASOPHILS ABSOLUTE AUTO 0.09 K/mm3 (0.00-0.23); BASOPHILS PERCENT AUTO 1 % (0-2); EOSINOPHILS ABSOLUTE AUTO 0.16 K/mm3 (0.00-0.68); EOSINOPHILS PERCENT AUTO 1 % (0-6); Hematocrit 25.5 % (37.0-53.0); Hemoglobin 9.2 g/dL (13.5-17.5); IMMATURE GRAN ABSOLUTE AUTO 0.15 K/mm3 (0.00-0.10); IMMATURE GRAN PERCENT AUTO 1 % (0-1); LYMPHOCYTES ABSOLUTE AUTO 0.93 K/mm3 (0.84-5.20); LYMPHOCYTES PERCENT AUTO 8 % (21-46); MONOCYTES ABSOLUTE AUTO 0.86 K/mm3 (0.16-1.47); MONOCYTES PERCENT AUTO 7 % (4-13); Mean Corpuscular HGB Conc 36.1 g/dL (31.5-36.5); Mean Corpuscular Volume 105 fL (80-100); NEUTROPHILS ABSOLUTE AUTO 10.22 K/mm3 (1.96-9.15); NEUTROPHILS PERCENT AUTO 82 % (41-73); NRBC ABSOLUTE 0.03 K/mm3 (0.00-0.02); NRBC Auto 0.2 /100 WBC (0.0-0.2); Platelet Count 71 K/mm3 (150-400); RDW Coefficient Variation 19.5 % (11.7-14.2); RDW Standard Deviation 74.4 fL (35.1-46.3); Red Blood Cell Count 2.42 M/mm3 (4.30-5.90); White Blood Cell Count 12.41 K/mm3 (4.00-11.30)
[2024-01-30 05:59] LABS: Albumin, Blood 2.1 g/dL (3.4-5.0); Albumin/Globulin Ratio 0.8 (0.8-1.8); Bilirubin, Total 19.9 mg/dL (0.1-1.0); Bun/Creatinine Ratio 21.2 (12.0-20.0); Calcium, Blood 7.3 mg/dL (8.5-10.1); Creatinine, Blood 0.43 mg/dL (0.60-1.20); Globulin, Blood 2.8 g/dL (2.2-4.0); Potassium, Blood 5.1 mmol/L (3.5-5.5); Total Protein, Blood 4.9 g/dL (6.4-8.2)
[2024-01-30 06:21] LABS: Magnesium, Blood 1.5 mg/dL (1.6-2.4); Phosphorus, Blood 1.8 mg/dL (2.5-4.9)
[2024-01-30 08:34] LABS: International Normalized Ratio 2.1; Prothrombin Time Results 21.3 Sec (9.7-11.5)
[2024-01-30] MEDS ORDERED: Mag Sulfate 1 GM/D5% 100ML 100 ML IV STA (09:40)
[2024-01-30] MEDS ORDERED: Sodium Phosphate 15 MM in Dextrose 5% 500 ML IV STA (09:40)
[2024-01-30] MEDS ORDERED: Multivitamins-Minerals Liquid 15 ML Oral Syringe PT SCH (13:55)
[2024-01-30] MEDS ORDERED: Bisacodyl 10 MG Supp PR PRN (14:10)
[2024-01-30] MEDS ORDERED: Magnesium Hydroxide Conc 10 ML UDC PT PRN (14:10)
[2024-01-30] MEDS ORDERED: Docusate Sodium 100 MG UDC PT PRN (14:10)
[2024-01-30] MEDS ORDERED: Furosemide 10 MG/ML 4ML Vial IV ONE (14:10)
--- NOTE | 2024-01-30 18:47 | NUR ---
SHIFT SUMMARY Precedex not weaned during this shift. Ativan given x1 for increased aggitation. Patient still actively hallucinating and disoriented. O2 weaned DHT inserted, TF trickle feed started. Phos and Mag replaced Lasix given with good effect. Family at bedside, updated on plan of care.
--- NOTE | 2024-01-30 21:00 | NUR ---
PT UPDATE DR. HERNANDEZ CALLED PER REQUEST ONCE PT MOTHER ARRIVED TO UNIT. DR. HERNANDEZ TO BEDSIDE TO DISCUSS CURRENT STATUS, ALL QUESTIONS ANSWERED, NO NEW ORDERS AT THIS TIME. CARE CONTINUES.
--- NOTE | 2024-01-30 21:08 | NUR ---
ASSUMPTION OF CARE ASSUMED CARE OF PATIENT AT 190O, BEDSIDE SHIFT REPORT RECEIVED FROM RUPERTO RN. PT RESTING IN BED, SLEEPING BUT AROUSABLE. PRECEDEX INFUSING AT 0.8MCG/KG/HR. PT RESPONSIVE TO VERBAL STIMULI, ANSWERS QUESTIONS APPROPRIATELY, WEAK BUT FOLLOWS DIRECTION WHEN PROMPTED. PT STATES THAT HE HAS HAD VISUAL AND AUDITORY HALLUCINATIONS, DENIES ANY AT TIME OF ASSESSMENT. HR 70'S SINUS, MAP >65. PT ON 4LPM VIA NC, OXYGEN SATURATION >95%. ABDOMEN ROUND AND FIRM, TENDER ON PALPATION, BOWEL TONES HYPOACTIVE. DOBHOFF IN PLACE WITH PIVOT 1.5 INFUSING AT 10MLS/HR WITH 30ML Q4H WATER FLUSH. CONDOM CATH IN PLACE DRAINING TO GRAVITY. POWERGLIDE IN PLACE TO VALERIA SL. PICC LINE IN PLACE TO LOLI INFUSING PRECEDEX WELL NS TKO. BED IN LOWEST POSITON, BED ALARM ON, CALL LIGHT WITHIN REACH. PT MOM AT THE BEDSIDE. CARE CONTINUES.
[2024-01-31] VITALS (23 sets, daily range): BP systolic 96–123; BP diastolic 59–99
--- NOTE | 2024-01-31 02:12 | NUR ---
ASSUMED CARE AT APPROXIMATE 0210. PT RESTING COMFORTABLY IN BED. THIS RN AGREES WITH PREVIOUS CHIEF DIGITAL OFFICER. WILL CONTINUE PLAN OF CARE.
--- NOTE | 2024-01-31 02:27 | NUR ---
SHIFT SUMMARY REPORT GIVEN TO SUSAN BOLIVAR TO ASSUME CARE OF PT. NO ACUTE CHANGES THIS SHIFT. PT CONTINUES TO REST IN BED, SLEEPING BUT AROUSABLE. PRECEDEX INFUSING AT 0.8MCG/KG/HR. PT STATES THAT HE HAS BEEN HAVING VISUAL AND AUDITORY HALLUCINATIONS ON AND OFF THIS SHIFT. PT MOVES EXTRMEITIES EQUALLY BILATERALLY. HR 60-70'S SINUS, MAP >65. PT ON 4LPM VIA NC, OXYGEN SATURATION >92%. ABDOMEN ROUND AND FIRM, BOWEL TONES HYPOACTIVE. DOBHOFF IN PLACE, PIVOT 1.5 INFUSING AT 10MLS/HR WITH 30ML Q4H WATER FLUSH. CONDOM CATH IN PLACE, BLADDER SCANNED THAT SHOWED 525MLS, PT IS ATTEMPTING TO URINATE. POWERGLIDE IN PLACE. PICC LINE IN PLACE TO LOLI INFUSING PRECEDEX WELL NS TKO. BED IN LOWEST POSITION, CALL LIGHT WITHIN REACH. PT MOM AT THE BEDSIDE.
[2024-01-31 03:18] LABS: Hematocrit 28.2 % (37.0-53.0); Hemoglobin 10.2 g/dL (13.5-17.5); Mean Corpuscular HGB 38.2 pg (26.0-34.0); Mean Corpuscular HGB Conc 36.2 g/dL (31.5-36.5); Mean Corpuscular Volume 106 fL (80-100); Mean Platelet Volume 12.9 fL (9.1-12.4); NRBC ABSOLUTE 0.03 K/mm3 (0.00-0.02); NRBC Auto 0.2 /100 WBC (0.0-0.2); Platelet Count 97 K/mm3 (150-400); RDW Coefficient Variation 19.5 % (11.7-14.2); RDW Standard Deviation 75.2 fL (35.1-46.3); Red Blood Cell Count 2.67 M/mm3 (4.30-5.90); White Blood Cell Count 16.29 K/mm3 (4.00-11.30)
[2024-01-31 03:31] LABS: International Normalized Ratio 2.01; Prothrombin Time Results 20.4 Sec (9.7-11.5)
[2024-01-31 03:43] LABS: Magnesium, Blood 1.7 mg/dL (1.6-2.4)
[2024-01-31 03:59] LABS: Albumin/Globulin Ratio 0.7 (0.8-1.8); Bilirubin, Total 22.4 mg/dL (0.1-1.0); Bun/Creatinine Ratio 14.6 (12.0-20.0); Calcium, Blood 7.6 mg/dL (8.5-10.1); Creatinine, Blood 0.55 mg/dL (0.60-1.20); Globulin, Blood 2.8 g/dL (2.2-4.0); Phosphorus, Blood 2.3 mg/dL (2.5-4.9); Total Protein, Blood 4.8 g/dL (6.4-8.2)
[2024-01-31 04:10] LABS: BAND PERCENT MAN 1 % (0-8); BASOPHILS ABSOLUTE MAN 0.32 K/mm3 (0.00-0.23); BASOPHILS PERCENT MAN 2 % (0-2); EOSINOPHILS PERCENT MAN 0 % (0-6); LYMPHOCYTES % ATYPICAL MANUAL 1 % (0-0); LYMPHOCYTES ABSOLUTE MAN 0.81 K/mm3 (0.84-5.20); LYMPHOCYTES PERCENT MAN 4 % (21-46); METAMYELOCYTE ABSOLUTE MAN 0.16 K/mm3 (0.00-0.00); METAMYELOCYTE PERCENT MAN 1 % (0-0); MONOCYTES ABSOLUTE MAN 0.97 K/mm3 (0.16-1.47); MONOCYTES PERCENT MAN 6 % (4-13); SEG NEUTROPHILS PERCENT MAN 85 % (41-73); TOTAL CELLS COUNTED 100
--- NOTE | 2024-01-31 05:01 | NUR ---
SHIFT SUMMARY PT REMAINED SLEEPING IN BED WITH PRECEDEX GTT NOW AT 0.6. PT COMPLAINS OF ALMOST ALL CIWA CRITERIA GIVING A SCORE OF 14. PT HAD A TOTAL OF 350 OUT FROM THE TIME I TOOK OVER CARE AT APPROXIMATELY 0200. MOM REMAINED AT BEDSIDE THROUGHOUT THE NIGHT. PT COMPLAINS OF ABDOMINAL PAIN. NO S/S OF ANY ACTIVE BLEEDING. PREVIOUS CHEM PANNEL APPEARS TO BE SUSPICIOUS OF HAVING AN INNACURATE POTASSIUM FROM 3 TO 5 THEN BACK DOWN TO AROUND 3. WILL CONTINUE PLAN OF CARE. NO NEW ACUTE EVENTS OVER NIGHT.
[2024-01-31] MEDS ORDERED: Thiamine HCl 100 MG in NS 50 ML IV SCH (09:00)
[2024-01-31] MEDS ORDERED: Potassium Phosphate Dibasic 30 MM in Dextrose 5% 500 ML IV STA (10:13)
[2024-01-31] MEDS ORDERED: TPN Consult Notification XX ONE (11:15)
--- NOTE | 2024-01-31 13:34 | NUR ---
Care Conference: Yesterday afternoon, this PC RN spend significant time with pt's mom and step-dad. Pt's mom spent time reminiscing about the patient and his 2 brothers growing up. She laughed about fun memories and cried about some unpleasant ones. She talked about her regrets, things she wished she had done differently. Provided therapeutic listening along with her , and giving gentle reminders that as parents, we all feel that way at some point, reassuring her she isn't alone. She acknowledges this, but states it's challenging given the circumstances. I offered to call a electrical plumbing supervisor, but she politely declined. The patient remains on precedex, and his prognosis remains guarded/poor. Will continue to offer support to family, as well as pt when able. He is continuing to hallucinate at times.
[2024-01-31] MEDS ORDERED: Lidocaine 4% 1 Patch TOP SCH (15:53)
[2024-01-31] MEDS ORDERED: Parenteral Electolytes 40 ML,Potassium Phosphate Dibasic 30 MM,Multivitamins 10 ML,ZINC... IV SCH (17:00)
--- NOTE | 2024-01-31 18:22 | NUR ---
SHIFT NOTE DHT pulled out by patient accidentally and replaced today. Not tollerating PO intake, c/o significant sharp belly pain, nausea and dry heaving. US and Xray of abd obtained. CPN started for nutrition. Worked with PT, up in chair for approx 1.5 hours today. O2 weaned to 1L NC Precedex weaned to 0.4, pt much more aware and calm.
--- NOTE | 2024-01-31 19:55 | NUR ---
ASSUMPTION OF CARE ASSUMED CARE OF PATIENT AT 1900, BEDSIDE SHIFT REPORT RECEIVED FROM RUPERTO BOLIVAR. PT RESTING IN BED, ALERT ORIENTED X4, PT UNSURE OF DATE BUT ABLE TO STATE YEAR. PT FOLLOWS DIRECTION WHEN PROMPTED, AND IS ABLE TO MAKE HIS NEEDS KNOWN. PRECEDEX INFUSING AT 0.4MCG/KG/HR. PT COMMUNICATING APPROPRIATELY WITH FAMILY AT THE BEDSIDE. ASSISTS WITH REPOSITIONING AND ORAL CARE. PT MOVES EXTREMITIES EQUALLY BILATERALLY. HR 70'S SINUS, MAP >65. PT DENIES CP/PRESSURE. PT ON 1LPM VIA NC, OXYGEN SATURATION >92%. DOBHOFF IN PLACE CLAMPED PER ORDER FOR BOWEL REST. ABDOMEN DISTENDED AND FIRM, BOWEL TONES HYPOACTIVE. PT COMPLAINING OF PAIN IN HIS ABDOMEN, MEDICATED PER EMAR. CONDOM CATH IN PLACE, REPLACED THIS SHIFT, DRAINING TO GRAVITY. POWERGLIDE IN PLACE TO VALERIA INFUSING NS TKO. PICC LINE IN PLACE TO LOLI INFUSING PRECEDEX WELL TPN AT 105MLS/HR. BED IN LOWEST POSITION, CALL LIGHT WITHIN REACH, PT FAMILY AT THE BEDSIDE. CARE CONTINUES.
[2024-01-31] MEDS ORDERED: FentaNYL Citrate 50 MCG/ML 2 ML Injection IV ONE (22:15)
[2024-02-01] VITALS (24 sets, daily range): BP systolic 94–128; BP diastolic 67–84
[2024-02-01 04:27] LABS: International Normalized Ratio 1.81; Prothrombin Time Results 18.5 Sec (9.7-11.5)
[2024-02-01 04:39] LABS: Albumin, Blood 1.9 g/dL (3.4-5.0); Albumin/Globulin Ratio 0.7 (0.8-1.8); Bilirubin, Total 22.3 mg/dL (0.1-1.0); Calcium, Blood 7.6 mg/dL (8.5-10.1); Creatinine, Blood 0.69 mg/dL (0.60-1.20); Globulin, Blood 2.9 g/dL (2.2-4.0); Phosphorus, Blood 2.7 mg/dL (2.5-4.9); Potassium, Blood 3.2 mmol/L (3.5-5.5); Total Protein, Blood 4.8 g/dL (6.4-8.2)
--- NOTE | 2024-02-01 05:30 | NUR ---
PT UPDATE PT CALLED THIS RN INTO ROOM, ON ARRIVAL TO THE ROOM THE PT INFOMRED THIS RN THAT HE PULLED OUT HIS DOBHOFF. PROVIDER AWARE. CARE CONTINUES.
[2024-02-01] MEDS ORDERED: Potassium Chloride 40 MEQ IV ONE (06:10)
--- NOTE | 2024-02-01 06:13 | NUR ---
SHIFT SUMMARY PT CONTINUES TO REST IN BED, SLEEPING BUT AROUSBALE. PRECEDEX INFUSING AT 0.6MCG/KG/HR. PT ORIENTED X4, UNSURE OF DATE BUT ABLE TO STATE MONTH AND YEAR. PT FOLLOWS DIRECTION WHEN PROMPTED. PT CONFUSED AT TIMES, APPEARS TO BE MORE SO WHEN HE FIRST WAKES UP. PT STATES THAT HE HAS BEEN HAVING VISUAL AND AUDITORY HALLUCINATIONS. PT MOVES EXTREMITIES EQUALLY BILATERALLY. PT ABLE TO PROVIDE ORAL CARE FOR SELF, ALSO ABLE TO REPOSITION SELF IN THE BED. HR 70-80'S SINUS, MAP >65. PT ON 4LPM VIA NC, OXYGEN SATURATION >92%. ABDOMEN ROUND AND FIRM, PT COMPLAINING OF ABDOMINAL PAIN THIS SHIFT, MEDICATED PER EMAR. PT PULLED DOBHOFF THIS AM, PROVIDER AWARE, INSTRUCTED TO LEAVE DOBHOFF OUT AT THIS TIME DUE TO GI REST PER DR. BEAR. CONDOM CATH IN PLACE PATENT DRAINING DARK YELLOW/BROWN URINE. POWERGLIDE IN PLACE TO VALERIA INFUSING NS TKO. PICC LINE IN PLACE TO LOLI INFUSING PRECEDEX WELL TPN AT 105MLS/HR. BED IN LOWEST POSITON, CALL LIGHT WITHIN REACH, PT MOM AT THE BEDSIDE. CARE CONTINUES.
[2024-02-01] MEDS ORDERED: Potassium Chl 20MEQ/Water100ML 100 ML IV SCH (06:30)
[2024-02-01] MEDS ORDERED: Furosemide 10 MG/ML 4ML Vial IV SCH (09:00)
--- NOTE | 2024-02-01 18:43 | NUR ---
SHIFT SUMMARY UP TO CHAIR MULTIPLE TIMES TODAY AND TOOK A SHOWER. SIGNIFICANT ABD PAIN AND NUSEA, DRY HEAVING SEVERAL TIMES. PARENTS UP TO DATE ON PLAN OF CARE. PRECEDEX OFF THIS AFTERNOON. TPN RUNNING
--- NOTE | 2024-02-01 19:45 | NUR ---
ASSUMPTION OF CARE ASSUMED CARE OF PATIENT AT 1900, BEDSIDE SHIFT REPORT RECEIVED FROM RUPERTO RN. PT RESTING IN BED, ALERT AND ORIENTED. PT ANSWERS QUESTIONS APPROPRIATELY, FOLLOWS DIRECTION WHEN PROMPTED AND IS ABLE TO MAKE HIS NEEDS KNOWN. PT STATES THAT HE IS SEEING SPECKS/GLASS FLOATING IN THE ROOM WELL BUGS. PT ALSO STATES THAT HE HEARS WHAT HE DESCRIBED "OLD TIME RADIO". PT MOVES EXTREMITIES EQUALLY BILATERALLY ABLE TO PERFORM ORAL CARE INDEPENDENTLY. PT ALSO REPOSITONS SELF IN BED INDEPENDENTLY. HR 90'S SINUS, MAP >65. PT DENIES CP/PRESSURE. ABDOMEN ROUND AND FIRM, BOWEL TONES HYPOACTIVE. PT COMPLAINING OF 7/10 ABDOMINAL PAIN, HEATING PAD IN PLACE WHICH PATIENT SAYS HELPS. PT USES URINAL TO VOID. POWERGLIDE IN PLACE TO VALERIA SL. PICC LINE IN PLACE TO LOLI INFUSING TPN @ 105MLS/HR. BED IN LOWEST POSITON, CALL LIGHT WITHIN REACH, PT MOM AT THE BEDSIDE. CARE CONTINUES.
--- NOTE | 2024-02-01 21:12 | NUR ---
PT UPDATE DR. HERNANDEZ CALLED ONCE PT MOM ARRIVED TO ROOM PER REQUEST. DR. HERNANDEZ TO BEDSIDE AROUND 2029, SPOKE WITH MOM ABOUT PLAN OF CARE AND CURRENT CONDITION, QUESTIONS ANSWERED. CARE CONTINUES.
[2024-02-01] MEDS ORDERED: Morphine Sulfate 4 MG/1 ML Injection IV PRN (23:15)
[2024-02-01] MEDS ORDERED: Metoclopramide HCl 5MG / ML 2ML Vial IV PRN (23:15)
[2024-02-02] VITALS (23 sets, daily range): BP systolic 117–160; BP diastolic 79–110
[2024-02-02 04:21] LABS: Hematocrit 29.5 % (37.0-53.0); Hemoglobin 10.7 g/dL (13.5-17.5); Mean Corpuscular HGB 38.1 pg (26.0-34.0); Mean Corpuscular HGB Conc 36.3 g/dL (31.5-36.5); Mean Corpuscular Volume 105 fL (80-100); Mean Platelet Volume 12.2 fL (9.1-12.4); NRBC ABSOLUTE 0.03 K/mm3 (0.00-0.02); NRBC Auto 0.2 /100 WBC (0.0-0.2); Platelet Count 156 K/mm3 (150-400); RDW Coefficient Variation 19.8 % (11.7-14.2); RDW Standard Deviation 77.1 fL (35.1-46.3); Red Blood Cell Count 2.81 M/mm3 (4.30-5.90); White Blood Cell Count 17.99 K/mm3 (4.00-11.30)
[2024-02-02 04:36] LABS: International Normalized Ratio 1.63; Prothrombin Time Results 16.8 Sec (9.7-11.5)
[2024-02-02 04:54] LABS: BAND PERCENT MAN 6 % (0-8); BASOPHILS PERCENT MAN 0 % (0-2); EOSINOPHILS PERCENT MAN 0 % (0-6); LYMPHOCYTES ABSOLUTE MAN 0.53 K/mm3 (0.84-5.20); LYMPHOCYTES PERCENT MAN 3 % (21-46); METAMYELOCYTE ABSOLUTE MAN 0.17 K/mm3 (0.00-0.00); METAMYELOCYTE PERCENT MAN 1 % (0-0); MONOCYTES ABSOLUTE MAN 2.69 K/mm3 (0.16-1.47); MONOCYTES PERCENT MAN 15 % (4-13); MYELOCYTE ABSOLUTE MAN 0.17 K/mm3 (0.00-0.00); MYELOCYTE PERCENT MAN 1 % (0-0); NEUTROPHILS ABSOLUTE MAN 14.39 K/mm3 (1.96-9.15); SEG NEUTROPHILS PERCENT MAN 74 % (41-73); TOTAL CELLS COUNTED 100
[2024-02-02 05:00] LABS: Albumin, Blood 1.9 g/dL (3.4-5.0); Albumin/Globulin Ratio 0.6 (0.8-1.8); Bilirubin, Total 22.2 mg/dL (0.1-1.0); Bun/Creatinine Ratio 19.5 (12.0-20.0); Calcium, Blood 8.2 mg/dL (8.5-10.1); Creatinine, Blood 0.77 mg/dL (0.60-1.20); Globulin, Blood 3.2 g/dL (2.2-4.0); Phosphorus, Blood 2.7 mg/dL (2.5-4.9); Potassium, Blood 3.5 mmol/L (3.5-5.5); Total Protein, Blood 5.1 g/dL (6.4-8.2)
[2024-02-02] MEDS ORDERED: Potassium Chloride 40 MEQ IV ONE (05:15)
--- NOTE | 2024-02-02 05:47 | NUR ---
SHIFT SUMMARY PT CONTINUES TO REST IN BED, SLEEPING BUT AROUSABLE. PT ANSWERS QUESTIONS APPROPRIATELY, FOLLOWS DIRECTION WHEN PROMPTED AND IS ABLE TO MAKE HIS NEEDS KNOWN. PT MOVES EXTREMITIES EQUALLY BILATERALLY. PT COMPLAINING OF PAIN IN HIS ABDOMEN, MEDICATED PER EMAR WITH MINIMAL EFFECT. PT AMBULATED TO BEDSIDE TOILET THIS SHIFT WITH WAKLER AND GAIT BELT. HR 90-120'S, HR INCREASED TO THE 160'S WHILE AMBULATING. MAP >65, PT DENIES CP/PRESSURE. PT ON 6LPM VIA NC, OXYGEN SATURATION 90-92%. ABDOMEN ROUND AND FIRM. BOWEL TONES HYPOACTIVE. PT COMPLAINING OF NAUSEA WITH DRY HEAVING, NO EMESIS NOTE, MEDICATED PER EMAR WITH MINIMAL EFFECT. PT USES URINAL TO VOID, UP TO BEDISDE TOILET WITH 1 UNMEASED VOID. POWERGLIDE IN PLACE TO VALERIA SL. PICC LINE IN PLACE TO LOLI INFUSING TPN @ 105MLS/HR. BED IN LOWEST POSITON, CALL LIGHT WITHIN REACH, PT MOM AT THE BEDSIDE. CARE CONTINUES.
[2024-02-02] MEDS ORDERED: Potassium Chl 20MEQ/Water100ML 100 ML IV SCH (06:00)
--- NOTE | 2024-02-02 09:00 | NUR ---
[place] of care: Patient oriented & follows commands but appears to be hallucinating at times. Precedex off since yesterday. Has ongoing complaints of pain & abdominal discomfort unrelieved by current pain management regimen. He also complains of nausea that persists despite administration of multiple prn anti-nausea medicines. Assisted OOB to commode with walker. Oxygen requirements increased overnight from 4L to 8L. Heart rate is also elevated sustaining between 120-130 but up to 160 with activity. Remains on bowel rest. Voiding & with one small bowel movement this morning. Encouraged to participate in ROM & ambulation to facilitate GI motility. Overall, he states he just does not feel well due to abdominal pain/nausea/lack of restful sleep. Will discuss plan of care with MD today. Mom is at bedside & she & patient updated.
--- NOTE | 2024-02-02 10:45 | NUR ---
MD update: 1045: Discussed care with Dr. Harris. Informed him of pt's ongoing abdominal pain/distention/nausea. Also notified him that pt's HR has been sustained between 120-130 today & his oxygen requirements have increased from 4L to 8L. We reviewed the pt's med rec & orders placed for CT C/A/P with contrast as well as [place] phenergan. 1300: Notified Dr. Harris of CT results. Orders received for NGT placement (to LIS), blood cultures, & pharmacy consultation to dose vanc d/t leukocytosis.
[2024-02-02] MEDS ORDERED: Promethazine HCl 25 MG Supp PR PRN (12:20)
[2024-02-02] MEDS ORDERED: TPN Consult Notification XX ONE (13:25)
[2024-02-02] MEDS ORDERED: Vancomycin HCL 2,000 MG in NS 500 ML IV SCH (14:30)
[2024-02-02] MEDS ORDERED: Metoprolol Tartrate 1 MG/ML 5 ML VIAL IV PRN (14:55)
[2024-02-02] MEDS ORDERED: Parenteral Electolytes 40 ML,Potassium Phosphate Dibasic 30 MM,Multivitamins 10 ML,Thia... IV SCH (17:00)
--- NOTE | 2024-02-02 18:16 | NUR ---
Shift summary: Two doses of Ativan given at MD request - he is slightly confused with this. Will continue to monitor. Abd pain/nausea seems to have slightly improved with phenergan suppository. HR/BP responded well to IV metoprolol. Discussed case with Dr. Monreal this evening who recommends toradol for pain management & downgrade to PCU status. Informed him that patient had pulled his NGT & he instructed me to leave it out d/t varices/ulcers. Patient ambulated multiple times in his room today & worked with both PT & OT. Current vital signs stable on 8L oxygen. Resting in bed at this time.
--- NOTE | 2024-02-02 19:30 | NUR ---
ASSUMPTION OF CARE ASSUMED CARE OF PATIENT AT 1900, BEDSIDE SHIFT REPORT RECEIVED FROM RUPERTO RN. PT RESTING IN BED, SLEEPING BUT AROUSABLE. PT AWAKENS TO VERBAL STIMULI, ORIENTED X4. PT WHILE SLEEPING MAKES REPETATIVE STROKING MOTION WITH HIS RIGHT HAND. PT ALSO APPEARD TO BE ATTEMPTING TO EAT SOMETHING WHILE ASLEEP. WHEN AWAKE PT FOLLOWS DIRECTION WHEN PROMPTED AND IS ABLE TO MAKE HIS NEEDS KNOWN. PT MOVES EXTREMITIES EQUALLY BILATERALLY, COMMUNICATES WITH FAMILY APPROPRIATELY. HR 100-110'S SINUS, MAP >65. PT DENIES CP/PRESSURE. PT ON 8LPM VIA NC, OXYGEN SATURATION 88-94%. ABDOMEN ROUND AND FIRM, BOWEL TONES HYPOACTIVE. PT COMPLAINING OF 8/10 PAIN IN HIS ABDOMEN. PT USES URINAL TO VOID, ALSO AMBULATES TO THE BEDSIDE TOILET WITH WALKER AND GAIT BELT. PICC LINE IN PLACE TO LOLI INFUSING TPN @75MLS/HR. POWERGLIDE IN PLACE TO VALERIA SL. BED IN LOWEST POSITION, CALL LIGHT WITHIN REACH. PT FAMILY AT THE BEDSIDE DURING ASSESSMENT. CARE CONTINUES.
[2024-02-02] MEDS ORDERED: Ketorolac Tromethamine 15mg Vial IV PRN (19:50)
--- NOTE | 2024-02-02 20:00 | NUR ---
PT UPDATE CALL PLACED TO DR. HERNANDEZ TO VERIFY ORDERS/EMAR. VERIFIED NO DOBHOFF/NG TUBE PLACEMENT AT THIS TIME. CARE CONTINUES.
[2024-02-02] MEDS ORDERED: Vancomycin HCL 1,000 MG in NS 250 ML IV SCH (23:00)
[2024-02-03] VITALS (17 sets, daily range): BP systolic 132–181; BP diastolic 74–142
[2024-02-03 03:51] LABS: Triglycerides 207 mg/dL (30-140)
[2024-02-03 04:31] LABS: Alanine Aminotransfer (ALT/SGP 85 U/L (12-78); Albumin, Blood 1.9 g/dL (3.4-5.0); Albumin/Globulin Ratio 0.6 (0.8-1.8); Alk Phos 367 U/L (50-136); Anion Gap 9 mmol/L (3-11); Aspartate Aminotrans (AST/SGOT 242 U/L (12-37); Bilirubin, Total 23.7 mg/dL (0.1-1.0); Blood Urea Nitrogen 17 mg/dL (8-24); Bun/Creatinine Ratio 21.3 (12.0-20.0); CO2, Blood 30 mmol/L (21-32); Calcium, Blood 8.3 mg/dL (8.5-10.1); Chloride, Blood 100 mmol/L (98-108); Globulin, Blood 3.4 g/dL (2.2-4.0); Glomerular Filtration Rate 120 (60-); Glucose, Blood 116 mg/dL (70-99); Magnesium, Blood 2.3 mg/dL (1.6-2.4); Phosphorus, Blood 2.2 mg/dL (2.5-4.9); Potassium, Blood 3.8 mmol/L (3.5-5.5); Sodium, Blood 135 mmol/L (136-145); Total Protein, Blood 5.3 g/dL (6.4-8.2)
--- NOTE | 2024-02-03 05:00 | NUR ---
PT UPDATE CALL PLACED TO HOSPITALIST REGARDING HYPERTENSION, ORDERS RECEIVED. CARE CONTINUES.
[2024-02-03] MEDS ORDERED: HydrALAZINE HCl 20 MG / ML 1ML Vial IV PRN (05:05)
[2024-02-03] MEDS ORDERED: Potassium Phosphate Dibasic 30 MM in Dextrose 5% 500 ML IV ONE (06:00)
--- NOTE | 2024-02-03 06:10 | NUR ---
SHIFT SUMMARY PT CONTINUES TO REST IN BED, SLEEPING BUT AROUSABLE. PT ANSWERS QUESTIONS APPROPRIATELY, FOLLOWS DIRECTION WHEN PROMPTED AND IS ABLE TO MAKE HIS NEEDS KNOWN. PT STATES HE HAS BEEN CONTINUING TO HAVE VISUAL AND AUDITORY HALLUCINATIONS UNCHANGED SINCE THE BEGINNING OF THIS SHIFT. PT COMPLAINING OF PAIN IN HIS ABDOMEN, MEDICATED PER EMAR WITH MINIMAL EFFECT. PT AMBUALTES TO BEDSIDE TOILET AND RECLINER WITH ASISTANCE AND WALKER. HR 100-110'S SINUS, HR INCREASES TO 140-150'S WITH AMBULATION. PT HAS BEEN HYPERTENSIVE THIS SHIFT, SBP 150-180'S, PROVIDER AWARE, MEDICATED PER EMAR. PT ON 10L O2 VIA NC, OXYGEN SATURATION 89-94%. ABDOMEN ROUND AND FIRM, TENDER ON PALPATION. PT COMPLAINING OF PERSISTENT ABDOMINAL PAIN. PT ALSO COMPLAINING OF NAUSEA THIS SHIFT WITH DRY HEAVING, NO EMESIS NOTED, MEDICATED PER EMAR. NO BM THIS SHIFT. PT UP TO BEDSIDE TOILET TO VOID. POWERGLIDE IN PLACE TO [place] SL. PICC LINE IN PLACE TO LOLI INFUSING TPN @ 75MLS/HR. BED IN LOWEST POSITION, CALL LIGHT WITHIN REACH, BED ALARM ON, CARE CONTINUES.
[2024-02-03] MEDS ORDERED: TPN Consult Notification XX ONE (11:05)
[2024-02-03 13:21] LABS: Hematocrit 31.4 % (37.0-53.0); Hemoglobin 10.8 g/dL (13.5-17.5); Mean Corpuscular HGB Conc 34.4 g/dL (31.5-36.5); Mean Corpuscular Volume 111 fL (80-100); Mean Platelet Volume 13.1 fL (9.1-12.4); NRBC ABSOLUTE 0.02 K/mm3 (0.00-0.02); NRBC Auto 0.1 /100 WBC (0.0-0.2); Platelet Count 178 K/mm3 (150-400); RDW Standard Deviation 81.4 fL (35.1-46.3); Red Blood Cell Count 2.84 M/mm3 (4.30-5.90); White Blood Cell Count 21.09 K/mm3 (4.00-11.30)
[2024-02-03 13:49] LABS: BAND PERCENT MAN 9 % (0-8); BASOPHILS ABSOLUTE MAN 0.21 K/mm3 (0.00-0.23); BASOPHILS PERCENT MAN 1 % (0-2); EOSINOPHILS PERCENT MAN 0 % (0-6); LYMPHOCYTES ABSOLUTE MAN 1.26 K/mm3 (0.84-5.20); LYMPHOCYTES PERCENT MAN 6 % (21-46); MONOCYTES ABSOLUTE MAN 1.68 K/mm3 (0.16-1.47); MONOCYTES PERCENT MAN 8 % (4-13); NEUTROPHILS ABSOLUTE MAN 17.92 K/mm3 (1.96-9.15); SEG NEUTROPHILS PERCENT MAN 76 % (41-73); TOTAL CELLS COUNTED 100
[2024-02-03 14:53] LABS: Vancomycin, Trough 17.8 ug/mL (5.0-10.0)
[2024-02-03] MEDS ORDERED: [UNRECOGNIZED DRUG - OTHER] IV SCH (17:00)
--- NOTE | 2024-02-03 17:14 | NUR ---
NEURO: PT HAS BEEN AWAKE, ALERT AND ORIENTED THROUGHOUT SHIFT WITH PERIODS OF FATIGUE. HE WORKED WITH PT TODAY AND IS MOTIVATED TO MAKE IMPROVEMENTS. PAIN: PT HAS PAIN IN ABDOMEN AND HAS HAD HEADACHE THROUGHOUT THE DAY. HE HAS HEEL PAIN FROM INJURY IN JULY/AUGUST. PER JOEL PT THERE'S NO FAT PAD LEFT FROM ATROPHY AND MAY BENEFIT FROM WEARING SHOES WHEN STANDING OR WALKING. GI/: HE HAS BEEN GETTING UP AND USING THE TOILET TO URINATE. URINE IS TEA COLORED. HAS STILL HAD EPISODES OF INCONTINENCE THAT HE IS UNAWARE OF. NO BM THIS SHIFT, JUST FLATULENCE. ABDOMEN IS DISTENDED. PT ON BOWEL REST. CPN INFUSING. CARDIAC/RESPIRATORY: PT HAS HAD SOME EPISODES OF HYPERTENSION, ONE DOSE OF METOPROLOL AND ONE DOSE OF HYDRALYZINE GIVEN WITH IMPROVEMENT. HIS HR IS ELEVATED WITH EXERTION OR MOVEMENT. SINUS TACH. LUNGS ARE CLEAR, BUT PATIENT IS REQUIRING O2 @ 10LPM NC WITH SPO2 BETWEEN 89-94%. SKIN IS JAUNDICED. DIAPHORETIC WHEN HE AWAKENS. PT REALLY WANTING TO SEE HIS DOG BEFORE BEING TRANSFERRED TO A REHAB FACILITY.
--- NOTE | 2024-02-03 20:45 | NUR ---
Assumed care of pt at 1900 Pt appears confortable on bed, rouses to voice. Pt family at bedside. PT reports pain medication was mildly effective and sts he is still nauseated. Medicated per emar. PT is aox3. Oriented to self, person, situation, confused on date/time- asked what month it is currently, sts "Five". Pt on 10L via nc, o2 sats>90%. Fine crackles in upper lobes. PT on tele, sinus tach rate of 110s observed. BP stable w/ maps>65. PT jaundiced. Abdomen distended. CPN infusing as directed. Call light w/ in reach and pt verbalized understanding of use. Plan of care ongoing
[2024-02-04] VITALS (21 sets, daily range): BP systolic 124–163; BP diastolic 77–109
[2024-02-04 04:52] LABS: Bun/Creatinine Ratio 22.1 (12.0-20.0); Calcium, Blood 8.3 mg/dL (8.5-10.1); Magnesium, Blood 2.3 mg/dL (1.6-2.4); Phosphorus, Blood 3.3 mg/dL (2.5-4.9); Potassium, Blood 3.8 mmol/L (3.5-5.5)
[2024-02-04 13:13] LABS: BASOPHILS ABSOLUTE AUTO 0.25 K/mm3 (0.00-0.23); BASOPHILS PERCENT AUTO 1 % (0-2); EOSINOPHILS PERCENT AUTO 0 % (0-6); Hematocrit 32.5 % (37.0-53.0); Hemoglobin 11.2 g/dL (13.5-17.5); IMMATURE GRAN ABSOLUTE AUTO 0.64 K/mm3 (0.00-0.10); IMMATURE GRAN PERCENT AUTO 3 % (0-1); LYMPHOCYTES ABSOLUTE AUTO 0.92 K/mm3 (0.84-5.20); LYMPHOCYTES PERCENT AUTO 4 % (21-46); MONOCYTES ABSOLUTE AUTO 3.53 K/mm3 (0.16-1.47); MONOCYTES PERCENT AUTO 15 % (4-13); Mean Corpuscular HGB 38.4 pg (26.0-34.0); Mean Corpuscular HGB Conc 34.5 g/dL (31.5-36.5); Mean Corpuscular Volume 111 fL (80-100); NEUTROPHILS PERCENT AUTO 77 % (41-73); NRBC ABSOLUTE 0.03 K/mm3 (0.00-0.02); NRBC Auto 0.1 /100 WBC (0.0-0.2); Platelet Count 195 K/mm3 (150-400); RDW Coefficient Variation 19.9 % (11.7-14.2); RDW Standard Deviation 81.8 fL (35.1-46.3); Red Blood Cell Count 2.92 M/mm3 (4.30-5.90); White Blood Cell Count 23.74 K/mm3 (4.00-11.30)
[2024-02-04] MEDS ORDERED: TPN Consult Notification XX ONE (13:15)
[2024-02-04 13:29] LABS: Mean Platelet Volume 13.3 fL (9.1-12.4)
[2024-02-04 14:02] LABS: Albumin/Globulin Ratio 0.5 (0.8-1.8); Bilirubin, Total 24.2 mg/dL (0.1-1.0); Globulin, Blood 3.7 g/dL (2.2-4.0); Total Protein, Blood 5.7 g/dL (6.4-8.2)
[2024-02-04 14:34] LABS: Bilirubin, Direct 19.3 mg/dL (0.0-0.3); Bilirubin, Indirect 4.9 mg/dL (0.1-0.7)
[2024-02-04] MEDS ORDERED: [UNRECOGNIZED DRUG - OTHER] IV SCH (17:00)
--- NOTE | 2024-02-04 17:55 | NUR ---
SHIFT SUMMARY: NEURO/PSYCH: PT HAS BEEN VERY PLEASANT AND COOPERATIVE TODAY. HE HAS BEEN INVOLVED IN HIS OWN CARE AND REMAINS MOTIVATED. HE HAS BEEN JOKING AROUND TODAY AND SEEMS IN GOOD SPIRITS. HE REMAINS TREMULOUS, BUT CIWA SCORES ARE 8 AND BELOW. CARDIAC/RESPIRATORY: PT FATIGUES AND EXPERIENCES DYSPNEA WITH EXERTION, HOWEVER HIS O2 WAS TITRATED DOWN TO 9LPM FROM 11LPM NC AND HIS SPO2 >92%. HE HAS BEEN IN SINUS TACH 104-120S, 130-140S WITH EXERTION. HE HAS BEEN NORMOTENSIVE TO HYPERTENSIVE BUT ONLY REQUIRED ONE DOSE OF METOPROLOL TODAY. GI/: ONE SMALL LOOSE BM THIS EVENING. URINE OUTPUT IS ADEQUATE, STILL VERY DARK IN COLOR. NO MORE EPISODES OF INCONTINENCE. ABDOMEN IS DISTENDED AND PAINFUL. SKIN IS JAUNDICE, GOOD TURGOR, EDEMA TO ARMS AND LOWER LEGS.
--- NOTE | 2024-02-04 21:15 | NUR ---
Assumed care of pt at 1900 Pt resting on bed and appears comfortable. Family at bedside. Pt alert/oriented and cooperative w/ care. Using call light appropriately. Pt has cpn infusing as ordered. Pt lungs clear, on 9l via humidified nc, sats>90%. On continuous cardiac nurse practitioner, sinus tach rate of 100s. Bp stable. Pt notifies this rn for bathroom needs- standby/ line assist with walker. Afebrile. Medicated for abdominal pain per emar. Denies further needs at this time. Plan of care ongoing.
[2024-02-05] VITALS (34 sets, daily range): BP systolic 79–164; BP diastolic 47–105
[2024-02-05 04:17] LABS: BASOPHILS ABSOLUTE AUTO 0.15 K/mm3 (0.00-0.23); BASOPHILS PERCENT AUTO 1 % (0-2); EOSINOPHILS ABSOLUTE AUTO 0.16 K/mm3 (0.00-0.68); EOSINOPHILS PERCENT AUTO 1 % (0-6); Hematocrit 29.1 % (37.0-53.0); Hemoglobin 10.2 g/dL (13.5-17.5); IMMATURE GRAN ABSOLUTE AUTO 0.65 K/mm3 (0.00-0.10); IMMATURE GRAN PERCENT AUTO 3 % (0-1); LYMPHOCYTES ABSOLUTE AUTO 0.96 K/mm3 (0.84-5.20); LYMPHOCYTES PERCENT AUTO 4 % (21-46); MONOCYTES ABSOLUTE AUTO 3.63 K/mm3 (0.16-1.47); MONOCYTES PERCENT AUTO 16 % (4-13); Mean Corpuscular HGB 37.4 pg (26.0-34.0); Mean Corpuscular HGB Conc 35.1 g/dL (31.5-36.5); Mean Corpuscular Volume 107 fL (80-100); Mean Platelet Volume 12.7 fL (9.1-12.4); NEUTROPHILS ABSOLUTE AUTO 17.59 K/mm3 (1.96-9.15); NEUTROPHILS PERCENT AUTO 76 % (41-73); NRBC ABSOLUTE 0.02 K/mm3 (0.00-0.02); NRBC Auto 0.1 /100 WBC (0.0-0.2); Platelet Count 164 K/mm3 (150-400); RDW Standard Deviation 74.1 fL (35.1-46.3); Red Blood Cell Count 2.73 M/mm3 (4.30-5.90); White Blood Cell Count 23.14 K/mm3 (4.00-11.30)
[2024-02-05 04:32] LABS: International Normalized Ratio 1.41; Prothrombin Time Results 14.7 Sec (9.7-11.5)
[2024-02-05 04:47] LABS: Albumin, Blood 1.8 g/dL (3.4-5.0); Albumin/Globulin Ratio 0.5 (0.8-1.8); Bilirubin, Total 23.6 mg/dL (0.1-1.0); Bun/Creatinine Ratio 21.7 (12.0-20.0); Calcium, Blood 7.9 mg/dL (8.5-10.1); Creatinine, Blood 1.38 mg/dL (0.60-1.20); Globulin, Blood 3.3 g/dL (2.2-4.0); Magnesium, Blood 2.3 mg/dL (1.6-2.4); Phosphorus, Blood 3.8 mg/dL (2.5-4.9); Potassium, Blood 3.5 mmol/L (3.5-5.5); Total Protein, Blood 5.1 g/dL (6.4-8.2)
[2024-02-05 04:52] LABS: Vancomycin, Random 14.1 ug/mL
--- NOTE | 2024-02-05 06:01 | NUR ---
END OF SHIFT SUMMARY NO ACUTE EVENTS OVERNIGHT. PT AOX4 AND COOPERATIVE WITH CARE. PT UP FREQUENTLY W/ WALKER AND STAND BY ASSIST. PT PAIN MANAGED W/ PRN TORADOL, DID NOT REQUIRE ANY ADDITIONAL PAIN MEDICATIONS. PT LUNGS CLEAR, REMAINS ON 9L VIA HUMIDIFIED NC. ON CONTINUOUS GYNECOLOGIST, SINUS TACH RATE OF 100S. BP STABLE. PT REMAINS JAUNDICED. TOLERATING PO INTAKE WELL. CPN RUNNING DIRECTED. PLAN OF CARE ONGOING.
[2024-02-05] MEDS ORDERED: Phenylephrine HCl 100 MCG/ML-NS 10MLSYR (1MG/10ML) IV ONE (06:14)
[2024-02-05] MEDS ORDERED: Etomidate 2MG / ML 10ML Vial IV ONE (06:14)
[2024-02-05] MEDS ORDERED: SuccINYLCHOLINE Chloride 100 MG/5 ML 5MLSYR IV ONE (06:14)
[2024-02-05] MEDS ORDERED: Propofol 10mg/ml 20 ml Vial (Procedural) IV ONE (06:14)
[2024-02-05] MEDS ORDERED: Vancomycin HCL 1,000 MG in NS 250 ML IV SCH (08:00)
--- NOTE | 2024-02-05 10:00 | NUR ---
ASSUMED CARE OF PT. PT OOB WITH 1 PERSON ASSIST TO RECLINER, THEN TO BATHROOM, THEN BACK TO BED. USES FWW WELL.
[2024-02-05] MEDS ORDERED: Octreotide Acetate 50 MCG in NS 50 ML IV STA (14:18)
[2024-02-05] MEDS ORDERED: Octreotide Acetate 500 MCG in NS 250 ML IV SCH (14:20)
[2024-02-05 14:30] LABS: Hematocrit 26.2 % (37.0-53.0); Hemoglobin 9.1 g/dL (13.5-17.5)
--- NOTE | 2024-02-05 15:02 | NUR ---
THIS AFTERNOON PT HAD AN EPISODE OF VOMITING BRIGHT RED BLOOD. VOMITTED 80ML. CALLED DR. HERNANDEZ WHO ORDERED OCTREOTIDE GTT AND PT IS TO BE NPO FOR EGD LATER TODAY. GAVE PT ZOFRAN AND COMPAZINE BEFORE VOMITING SUBSIDED. PT HAS ALSO HAD SEVERE ABD PAIN TODAY, ONE DOSE OF MORPHINE GIVEN AND HEATING PAD PROVIDED.
[2024-02-05] MEDS ORDERED: FentaNYL Citrate 50 MCG/ML 5 ML Injection ONE (16:37)
[2024-02-05] MEDS ORDERED: Ondansetron HCl 2 MG / ML 2ML Vial ONE (16:38)
[2024-02-05] MEDS ORDERED: Sugammadex Sodium 200 MG/2ML SDV (100 MG/ML) ONE (16:38)
[2024-02-05] MEDS ORDERED: Dexamethasone Sod Phos 10 MG/ML 1ML VIAL ONE (16:38)
[2024-02-05 17:18] LABS: Hematocrit 23.6 % (37.0-53.0); Hemoglobin 8.3 g/dL (13.5-17.5)
--- NOTE | 2024-02-05 17:44 | NUR ---
DR. HERNANDEZ AT BEDSIDE WITH ANESTHESIA AND DAY SURGERY CREW FOR EGD.
[2024-02-05] MEDS ORDERED: EPINEPHrine HCL 11.25 MG/0.5 ML VIAL ONE (17:52)
[2024-02-05] MEDS ORDERED: EPINEPhrine HCl 1 MG/ML IV IV ONE (18:00)
--- NOTE | 2024-02-05 18:03 | NUR ---
02/05/24 [address] VILLATORO IN ICU 13. SEE ANESTHESIA RECORDS.
[2024-02-05] MEDS ORDERED: Pantoprazole Sodium 40 MG in NS 50 ML IV SCH (18:40)
--- NOTE | 2024-02-05 18:44 | NUR ---
SUMMARY EGD DONE, BANDING TO VARICES. PT IS AWAKE TALKING TO FAMILY. ON 13L HFNC. ABLE TO TAKE DEEP BREATHS AND FOLLOWING COMMANDS. REPORTS NAUSEA, GAVE REGLAN. REMAINS ON OCTREOTIDE GTT. BEFORE PROCEDURE PT HAD BEEN OOB SEVERAL TIMES TODAY. USES FWW AND ONE PERSON ASSIST. CALLING APPROPRIATELY WITH CALL LIGHT. ON TPN FOR NUTRITION. NO SIGN OF DISTRESS.
[2024-02-05] MEDS ORDERED: Lactated Ringer's 1,000 ML IV SCH (18:50)
[2024-02-05 20:45] LABS: Hematocrit 23.9 % (37.0-53.0); Hemoglobin 8.2 g/dL (13.5-17.5)
--- NOTE | 2024-02-05 22:30 | NUR ---
PT IS ALERT AND ORIENTED X4, FOLLOWING COMMANDS AND CALLS OUT APPROPRIATELY. FEELS A LITTLE DROWSY FROM THE INTUBATION, BUT PT STATES THEY ARE FEELING BETTER. PT IS SATTING >92% ON HIGH FLOW, WAS ON 11L NOW ON 9L AND TITRATING DOWN IF SATS ARE >95%. PT SOUNDS CLEAR, PT DENIES SHORTNESS OF BREATH. PT HEART RATE IS IN THE 100s, BLOOD PRESSURE STABLE AT 117/63, PT DENIES CHEST PAIN. PT IS VERY JAUNDICE. PT HAS PICC LINE THAT IS PATENT AND WORKS WELL IN THE RIGHT UPPER ARM. NPO FOR NOW. NO OTHER INTERVENTIONS AT THIS TIME. PLAN OF CARE CONTINUED.
[2024-02-06] VITALS (36 sets, daily range): BP systolic 108–163; BP diastolic 64–116
[2024-02-06 03:39] LABS: BASOPHILS ABSOLUTE AUTO 0.13 K/mm3 (0.00-0.23); BASOPHILS PERCENT AUTO 1 % (0-2); EOSINOPHILS ABSOLUTE AUTO 0.03 K/mm3 (0.00-0.68); EOSINOPHILS PERCENT AUTO 0 % (0-6); Hematocrit 22.5 % (37.0-53.0); Hemoglobin 7.7 g/dL (13.5-17.5); IMMATURE GRAN ABSOLUTE AUTO 1.33 K/mm3 (0.00-0.10); IMMATURE GRAN PERCENT AUTO 5 % (0-1); LYMPHOCYTES ABSOLUTE AUTO 0.84 K/mm3 (0.84-5.20); LYMPHOCYTES PERCENT AUTO 3 % (21-46); MONOCYTES ABSOLUTE AUTO 3.09 K/mm3 (0.16-1.47); MONOCYTES PERCENT AUTO 12 % (4-13); Mean Corpuscular HGB Conc 34.2 g/dL (31.5-36.5); Mean Corpuscular Volume 108 fL (80-100); Mean Platelet Volume 12.8 fL (9.1-12.4); NEUTROPHILS ABSOLUTE AUTO 19.61 K/mm3 (1.96-9.15); NEUTROPHILS PERCENT AUTO 78 % (41-73); NRBC ABSOLUTE 0.02 K/mm3 (0.00-0.02); NRBC Auto 0.1 /100 WBC (0.0-0.2); Platelet Count 157 K/mm3 (150-400); RDW Coefficient Variation 18.5 % (11.7-14.2); RDW Standard Deviation 72.5 fL (35.1-46.3); Red Blood Cell Count 2.08 M/mm3 (4.30-5.90); White Blood Cell Count 25.03 K/mm3 (4.00-11.30)
[2024-02-06 03:51] LABS: International Normalized Ratio 1.46; Prothrombin Time Results 15.2 Sec (9.7-11.5)
[2024-02-06 04:10] LABS: Albumin, Blood 1.4 g/dL (3.4-5.0); Albumin/Globulin Ratio 0.5 (0.8-1.8); Bun/Creatinine Ratio 21.3 (12.0-20.0); Calcium, Blood 7.3 mg/dL (8.5-10.1); Creatinine, Blood 2.07 mg/dL (0.60-1.20); Magnesium, Blood 2.3 mg/dL (1.6-2.4); Phosphorus, Blood 5.1 mg/dL (2.5-4.9); Potassium, Blood 4.7 mmol/L (3.5-5.5); Total Protein, Blood 4.4 g/dL (6.4-8.2)
--- NOTE | 2024-02-06 05:41 | NUR ---
PT SUMMARY PT IS ALERT AND ORIENTED, SLEEPING PEACEFULLY IN BED. NO NEW EVENTS TO REPORT OVERNIGHT. PLAN OF CARE CONTINUED.
[2024-02-06 07:51] LABS: Vancomycin, Random 25.2 ug/mL
--- NOTE | 2024-02-06 10:30 | NUR ---
PT HAD BM, SOME SOLID MASS, MOSTLY LIQUID WITH CANELO RED BLOOD. GI AND MD NOTIFIED. H&H ORDER PLACED.
[2024-02-06 11:29] LABS: Hematocrit 24.1 % (37.0-53.0); Hemoglobin 8.3 g/dL (13.5-17.5)
[2024-02-06] MEDS ORDERED: Albumin (Human) 25gm/100ml 100 ML IV SCH ×3 (13:10→21:00)
--- NOTE | 2024-02-06 16:38 | NUR ---
Pt was agreeable to see a therapy dog today. His mom Dewayne has continued to spend most days at pt's bedside. Pt's intake has remained poor, but he is working with therapy and participating in his care. He has EGD with banding done last night, appears to have been successful. Plan to see pt tomorrow at mom's request, to continue with therapeutic listening.
--- NOTE | 2024-02-06 18:35 | NUR ---
SHIFT SUMMARY NEURO: PT A/OX4 T/O SHIFT. MAKES NEEDS KNOWN, OBEYS COMMANDS. CARDIO: SR-ST 90'S-130'S W/ ACTIVITY, DENIES CHEST PAIN, PRESSURE, BP STABLE. RESP: ON 7L HF NC AND SATTING ABOVE 90%. GI: PT HAD TWO MIXED TEXTURE BMS TODAY, THE FIRST WITH REPORTED OLD BLOOD, THE SECOND WITH CANELO RED BLOOD. GI AND MD NOTIFIED, H&H ORDERED. NOTABLE ABDOMINAL DISTENTION, PT STATES HAS IMPROVED GREATLY. ADVANCED TO A CLEAR LIQUID DIET TODAY. TPN DC'D. PT EXPERIENCED NAUSEA INTERMITTENTLY T/O THE SHIFT. TREATED PER APR. GI: CONTINENT OF URINE, USING TOILET IN ROOM. MUSCULOSK: AMBULATING IN ROOM WITH FWW WITH SBA ASSIST FOR WEAKNESS, LINES, CORDS, TELE.
[2024-02-06] MEDS ORDERED: Protein Supplement 30 ML UD PO SCH (21:00)
--- NOTE | 2024-02-06 21:03 | NUR ---
THIS RN ASSUMED CARE OF PT AT 1900. PT IS ALERT AND ORIENTED X4, SITTING IN BED WITH FAMILY PRESENT AT BEDSIDE. PT WAS ABLE TO GET UP AND USE THE BATHROOM. PT IS STILL HAVING BLOODY STOOLS, GI PROVIDER IS AWARE THIS RN LET MELVI MCNAIR THE NIGHT PROVIDER KNOW WELL, WILL DO AN H AND H REDRAW AT 2200. PT SOUNDS CLEAR, ON 9L HIGH FLOW NC SATTING >90%, PT DENIES SHORTNESS OF BREATH. PT HEART RATE IS IN THE 100s, BLOOD PRESSURE STABLE AT 122/69, PT DENIES CHEST PAIN. PT WAS COMPLAINING OF SOME ABDOMINAL PAIN, THIS RN TREATED WITH PRN PAIN MEDICATION ON EMAR. NO OTHER INTERVENTIONS AT THIS TIME. PLAN OF CARE CONTINUED.
[2024-02-06 22:16] LABS: Hemoglobin 6.6 g/dL (13.5-17.5)
[2024-02-07] VITALS (25 sets, daily range): BP systolic 117–155; BP diastolic 70–97
--- NOTE | 2024-02-07 00:39 | NUR ---
PT HAD A H AND H CHECK AT 2200 ON 02/06/24, HGB CAME BACK 6.6, PT IS STILL HAVING BLOODY STOOLS. PROVIDER IS AWARE, XU OGDEN NP. PROVIDER SAID TO GIVE 1 UNIT OF PRBCs AND RECHECK H AND H 30 MINUTES AFTER BLOOD TRANSFUSION IS COMPLETE.
[2024-02-07 03:45] LABS: BASOPHILS ABSOLUTE AUTO 0.14 K/mm3 (0.00-0.23); BASOPHILS PERCENT AUTO 1 % (0-2); EOSINOPHILS ABSOLUTE AUTO 0.22 K/mm3 (0.00-0.68); EOSINOPHILS PERCENT AUTO 1 % (0-6); Hemoglobin 7.6 g/dL (13.5-17.5); IMMATURE GRAN ABSOLUTE AUTO 0.94 K/mm3 (0.00-0.10); IMMATURE GRAN PERCENT AUTO 5 % (0-1); LYMPHOCYTES ABSOLUTE AUTO 1.15 K/mm3 (0.84-5.20); LYMPHOCYTES PERCENT AUTO 6 % (21-46); MONOCYTES ABSOLUTE AUTO 3.18 K/mm3 (0.16-1.47); MONOCYTES PERCENT AUTO 15 % (4-13); Mean Corpuscular HGB 36.7 pg (26.0-34.0); Mean Corpuscular HGB Conc 34.5 g/dL (31.5-36.5); Mean Corpuscular Volume 106 fL (80-100); NEUTROPHILS ABSOLUTE AUTO 15.46 K/mm3 (1.96-9.15); NEUTROPHILS PERCENT AUTO 73 % (41-73); NRBC ABSOLUTE 0.02 K/mm3 (0.00-0.02); NRBC Auto 0.1 /100 WBC (0.0-0.2); Platelet Count 150 K/mm3 (150-400); RDW Coefficient Variation 18.8 % (11.7-14.2); RDW Standard Deviation 72.8 fL (35.1-46.3); Red Blood Cell Count 2.07 M/mm3 (4.30-5.90); White Blood Cell Count 21.09 K/mm3 (4.00-11.30)
[2024-02-07 04:10] LABS: International Normalized Ratio 1.45; Prothrombin Time Results 15.1 Sec (9.7-11.5)
[2024-02-07 04:17] LABS: Alanine Aminotransfer (ALT/SGP 89 U/L (12-78); Albumin, Blood 2.5 g/dL (3.4-5.0); Alk Phos 258 U/L (50-136); Anion Gap 13 mmol/L (3-11); Aspartate Aminotrans (AST/SGOT 202 U/L (12-37); Bilirubin, Total 22.2 mg/dL (0.1-1.0); Blood Urea Nitrogen 56 mg/dL (8-24); Bun/Creatinine Ratio 20.7 (12.0-20.0); CO2, Blood 27 mmol/L (21-32); Calcium, Blood 8.1 mg/dL (8.5-10.1); Chloride, Blood 104 mmol/L (98-108); Globulin, Blood 2.5 g/dL (2.2-4.0); Glomerular Filtration Rate 31 (60-); Glucose, Blood 80 mg/dL (70-99); Potassium, Blood 4.1 mmol/L (3.5-5.5); Sodium, Blood 140 mmol/L (136-145); Vancomycin, Random 16.7 ug/mL
--- NOTE | 2024-02-07 06:18 | NUR ---
PT SUMMARY PT DID GET ONE UNIT OF PRBCs, H AND H RECHECK WAS 7.6. NO NEW EVENTS TO REPORT OVERNIGHT. PLAN OF CARE CONTINUED.
[2024-02-07] MEDS ORDERED: Vancomycin HCL 1,000 MG in NS 250 ML IV ONE (08:10)
[2024-02-07 12:45] LABS: Hematocrit 23.9 % (37.0-53.0); Hemoglobin 8.2 g/dL (13.5-17.5)
[2024-02-07 14:39] LABS: Source, Urine Clean Catch
[2024-02-07 14:48] LABS: Blood, Urine 1+ (Neg); Color, Urine Amber (P-Yellow); Glucose Qualitative, Urine Neg (Neg); Ketones, Urine Neg (Neg); Leukocyte Esterase, Urine 1+ (Neg); Nitrite, Urine Neg (Neg); Protein, Urine 1+ (Neg); Urobilinogen, Urine 2+ (Normal)
[2024-02-07 15:01] LABS: Appearance, Urine Clear (Clear); Bilirubin, Urine 3+ (Neg)
[2024-02-07 15:02] LABS: Bacteria Rare /hpf; Red Blood Cells, Urine 0-2 /hpf (0-2); Renal Epithelial Rare /hpf (0-Rare); Squamous Epithelial Cells Rare /hpf (Few); Transitional Epithelial Cells Rare /hpf (0-Rare)
[2024-02-07] MEDS ORDERED: Sodium Chloride 0.45% 1,000 ML IV SCH (16:30)
--- NOTE | 2024-02-07 18:55 | NUR ---
SHIFT SUMMERY: NEURO: A&OX4. FOLLOWS COMMANDS AND MAKES NEEDS KNOWN TO STAFF. WRAPPING CHECKER STRENGH EQUAL AND IS ABLE TO MOVE ALL EXTEMITIES. NO ACUTE NEURO SYMPTOMS. CARDIAC: NORMAL SINUS RHYTHM THROUGHOUT SHIFT. PT REPORTED SLIGHT SOB THROUGHOUT SHIFT THAT WAS WORSE WITH LONG CONVERSATIONS. PT DENIED ANY CP, PRESSURE, TIGHTNESS. RESP: PT TRANSITIONED OFF OF AIRVO THIS AFTERNOON AROUND 1330 AND WAS PLACED ON 7L NC. PT IS NOW ON 5L NC AND MAINTAINING O2 SATS > 92%. GI/: PT HAS HAD MULTIPLE BLACK COFFEE GROUND STOOLS TODAY. DR HERNANDEZ SAW PT TODAY AND WANTS TO RESTART TPN ON PT. PER PHARMACY TPN DRIP NEEDS TO BE MANAGED BY DIETITION AND IF THEY ARE NOT HERE TOMORROW THEN GI DR NEEDS TO MANAGE DRIP. SEE NURSE NOTIFY ORDER. PT HAS BEEN COMPLAINING OF ABD PAIN THROUGHOUT DAY. ABD IS DISTENDED AND FIRM. GI DR AWARE. LINES: PICC LINE TO LOLI, POWER GLIDE TO VALERIA. BOTH PATENT. NO OTHER SIGNIFCANT EVENTS HAPPENED DURING THIS SHIFT.WILL CONTINUE TO CARE FOR PT TILL END OF SHIFT.
[2024-02-07] MEDS ORDERED: Albumin (Human) 25gm/100ml 100 ML IV SCH ×2 (21:00→22:00)
--- NOTE | 2024-02-07 21:19 | NUR ---
UPDATE ASSUMED CARE OF PT AT 1900, PT AWAKE, ALERT AND ORIENTED X4, FOLLOWS COMMANDS, FAMILY AT BEDSIDE VISITING WITH PT, AFEBRILE, VSS, SR 90S, SBP 149/90, O2 AT 5 LPM NC, SPO2>90% PT DENIES SOB, RIGHT TL PICC PATENT WITH PROTONIX, OCTREOTIDE AND 1/2 NS INFUSING PER ORDERS, ABD ROUNDED,DISTENDED, FIRM AND TENDER TO PALPATION, PT WAS MEDICATED WITH PRN MEDS BY PREVIOUS SHIFT AND PT STATES WAS EFFECTIVE WITH RATED PAIN NOW AT 5 ON SCALE OF 0-10, NOTED +2 BLE EDEMA, JAUNDICE SKIN AND SCLERA, PT AMBULATED TO TOILET WITH WALKER AND STANDBY ASSIST, VOIDS WITHOUT DIFFICULTY AND HAD 1 SM FORMED DARK BROWN BM ,NO BLEEDING NOTED,AMBULATED BACK TO BED, SIDE RAILS UP X2 CALL LIGHT IN REACH
[2024-02-08] VITALS (21 sets, daily range): BP systolic 122–165; BP diastolic 82–109
[2024-02-08 04:15] LABS: BASOPHILS ABSOLUTE AUTO 0.15 K/mm3 (0.00-0.23); BASOPHILS PERCENT AUTO 1 % (0-2); EOSINOPHILS ABSOLUTE AUTO 0.27 K/mm3 (0.00-0.68); EOSINOPHILS PERCENT AUTO 1 % (0-6); Hemoglobin 7.5 g/dL (13.5-17.5); IMMATURE GRAN ABSOLUTE AUTO 0.96 K/mm3 (0.00-0.10); IMMATURE GRAN PERCENT AUTO 4 % (0-1); LYMPHOCYTES ABSOLUTE AUTO 1.04 K/mm3 (0.84-5.20); LYMPHOCYTES PERCENT AUTO 5 % (21-46); MONOCYTES ABSOLUTE AUTO 2.78 K/mm3 (0.16-1.47); MONOCYTES PERCENT AUTO 13 % (4-13); Mean Corpuscular HGB 36.6 pg (26.0-34.0); Mean Corpuscular HGB Conc 34.1 g/dL (31.5-36.5); Mean Corpuscular Volume 107 fL (80-100); Mean Platelet Volume 12.9 fL (9.1-12.4); NEUTROPHILS ABSOLUTE AUTO 16.42 K/mm3 (1.96-9.15); NEUTROPHILS PERCENT AUTO 76 % (41-73); NRBC ABSOLUTE 0.03 K/mm3 (0.00-0.02); NRBC Auto 0.1 /100 WBC (0.0-0.2); Platelet Count 152 K/mm3 (150-400); RDW Coefficient Variation 19.1 % (11.7-14.2); RDW Standard Deviation 74.4 fL (35.1-46.3); Red Blood Cell Count 2.05 M/mm3 (4.30-5.90); White Blood Cell Count 21.62 K/mm3 (4.00-11.30)
[2024-02-08 04:55] LABS: Albumin, Blood 2.8 g/dL (3.4-5.0); Albumin/Globulin Ratio 1.2 (0.8-1.8); Bilirubin, Total 23.4 mg/dL (0.1-1.0); Bun/Creatinine Ratio 22.3 (12.0-20.0); Creatinine, Blood 2.51 mg/dL (0.60-1.20); Globulin, Blood 2.3 g/dL (2.2-4.0); Potassium, Blood 3.7 mmol/L (3.5-5.5); Total Protein, Blood 5.1 g/dL (6.4-8.2)
--- NOTE | 2024-02-08 06:16 | NUR ---
UPDATE AFEBRILE, NO ACUTE EVENTS THIS SHIFT, MEDICATED WITH MORPHINE X2 FOR ABD PAIN, EFFECTIVE FOR PAIN, HFNC INCREASED FROM 5 LPM O2 TO 9 LPM AND NOW AT 7 LPM TO KEEP SPO2 >90%, SR 80-90S, SBP 130-140S, SIDE RAILS UP X2 CALL LIGHT IN REACH
--- NOTE | 2024-02-08 08:15 | NUR ---
Allowed patient to sleep and went in and he wanted to use bathroom, assisted with lines and tubes. He was independent with ambulation and called appropriately to go back to bed. He was instructed to use urinal and forgot so have inmeasured urine and had a paste stool brown in color. He is on 5L HF NC and sats 95%. He recieved clear liquid diet and tolerating fluids well. He remains jaundice. He has PICC line to [facility] and has 1/2 NS infusing at 200 ml/hr, Octrotide at 25 ml/hr and protonix at 10 ml/hr. PICC line site has bruising area. Mother at bedside.
[2024-02-08] MEDS ORDERED: CefTRIAXone Sodium 1,000 MG in NS 100 ML IV SCH (09:00)
[2024-02-08] MEDS ORDERED: Morphine Sulfate 4 MG/1 ML Injection IV PRN (10:35)
[2024-02-08] MEDS ORDERED: Ketorolac Tromethamine 15mg Vial IV PRN (10:35)
--- NOTE | 2024-02-08 10:45 | NUR ---
Dr Harris has been by to see patient and family had some concerns to be addressed. He had consulted with Dr Monreal over phone. Patient has bilateral; SCD's in place and tolerating well. Patient is tolerating his med well. 1/2 NS was stopped earlier by Dr Harris and will be waiting for TPN to start. Patient continues to tolerate PO intake but still has extended abdomen with some discomfort. We are starting on tordal as 1st line pain med and Morphine if needed for higher pain scale. More Family present in room. He remains on 9L O2 HF NC and sats 95%, reduced to 7L to see if tolerated.
--- NOTE | 2024-02-08 13:30 | NUR ---
Patient has been up several more time for BRP and has unmeasured urine and stool, have urinal next to him and he continues to not use. Dr Abel consulted and added bladder US and Bladder scan and got 297, but has so much ascites that it is hard to differentiate from bladder content. Patient did well with Toradal but was caneled by Dr Abel as he states very hard on kidneys and left him with Morphine that was PRN already. VSS, continues to have 8/10 belly pain off and on. Family has been in and out to allow him to sleep.
--- NOTE | 2024-02-08 14:30 | NUR ---
US done in room and Dr Abel was by and he wanted post urination bladder scan and was any where from 89 to 376 depending on how much ascites it picked up and Dr Abel was happy. Got patient some chicken broth as they brought beef and ice for his apple insures. Patient has no current other needs. He continues on 10mls/hr Protonix's and 25 mls/hr OctreotideHe is been titrated down to 5L O2 hf NC and sats 93-95 and states no SOB.
--- NOTE | 2024-02-08 16:31 | NUR ---
Patient called shortly after mother returned and was uncomfortable anfd re-arrange bed and position, also medicated with 2mg morphine. Called and ask for Fentanyl patch and Dr Harris just wanted him on PRN Morphine and changed it from Q4 to Q6, Patient informed of change. VSS. No changes in Protonix or Octreotide. Patient wanting to rest. Increased patient to 6L O2 via HF NC and sats increased to 98% and took pressure off belly by positioning and was easier to breath. Patient has no current needs. Talked with mother and patient and answered questions and concerns about possible procedure tomorrow for removing fluid from belly.
--- NOTE | 2024-02-08 18:15 | NUR ---
Patient awake in room and is alert and oriented x4. He is independent with positioning and ambulating to [facility], just needs assistance with lines and sitting up in bed. He is on 6L O2 via HF NC and sats 94%, he denies an difficulty breathing or SOB. He has PICC Line in LOLI and is infusing Protonix at 10 ml/hr and Octreotide at 25 ml/hr. He has had [place] matress repositioned and states fingers up is much better. SCD bilaterally to LE's. He is jaundice in color. He tolerates clear liquid diet. His TPN order was not renewed and was going to start today but needs Dietary consult in am to restart TPN 02/08, Did not place consult as there is no place to make notes, will call in am, and have notified Dr Harris of situation. Patient and family have no current concerns and paoin is managed currently.
[2024-02-09] VITALS (20 sets, daily range): BP systolic 142–168; BP diastolic 85–100
[2024-02-09 04:36] LABS: Hematocrit 23.9 % (37.0-53.0); Mean Corpuscular HGB 36.9 pg (26.0-34.0); Mean Corpuscular HGB Conc 33.5 g/dL (31.5-36.5); Mean Corpuscular Volume 110 fL (80-100); Mean Platelet Volume 12.8 fL (9.1-12.4); Platelet Count 168 K/mm3 (150-400); RDW Coefficient Variation 18.9 % (11.7-14.2); RDW Standard Deviation 76.7 fL (35.1-46.3); Red Blood Cell Count 2.17 M/mm3 (4.30-5.90); White Blood Cell Count 21.19 K/mm3 (4.00-11.30)
[2024-02-09 04:58] LABS: BAND PERCENT MAN 7 % (0-8); BASOPHILS ABSOLUTE MAN 0.42 K/mm3 (0.00-0.23); BASOPHILS PERCENT MAN 2 % (0-2); EOSINOPHILS ABSOLUTE MAN 0.42 K/mm3 (0.00-0.68); EOSINOPHILS PERCENT MAN 2 % (0-6); LYMPHOCYTES ABSOLUTE MAN 0.63 K/mm3 (0.84-5.20); LYMPHOCYTES PERCENT MAN 3 % (21-46); MONOCYTES ABSOLUTE MAN 2.75 K/mm3 (0.16-1.47); MONOCYTES PERCENT MAN 13 % (4-13); MYELOCYTE ABSOLUTE MAN 0.63 K/mm3 (0.00-0.00); MYELOCYTE PERCENT MAN 3 % (0-0); NEUTROPHILS ABSOLUTE MAN 16.31 K/mm3 (1.96-9.15); SEG NEUTROPHILS PERCENT MAN 70 % (41-73); TOTAL CELLS COUNTED 100
[2024-02-09 05:12] LABS: Albumin, Blood 3.4 g/dL (3.4-5.0); Albumin/Globulin Ratio 1.5 (0.8-1.8); Bilirubin, Total 23.6 mg/dL (0.1-1.0); Bun/Creatinine Ratio 21.2 (12.0-20.0); Calcium, Blood 8.5 mg/dL (8.5-10.1); Creatinine, Blood 2.41 mg/dL (0.60-1.20); Globulin, Blood 2.3 g/dL (2.2-4.0); Magnesium, Blood 2.3 mg/dL (1.6-2.4); Phosphorus, Blood 3.6 mg/dL (2.5-4.9); Potassium, Blood 3.8 mmol/L (3.5-5.5); Total Protein, Blood 5.7 g/dL (6.4-8.2)
--- NOTE | 2024-02-09 05:16 | NUR ---
END OF SHIFT SUMMARY No acute events overnight. Protonix and octreotine drips continue as ordered. Pt slept for most of night w/ frequent trips to . Pt requires minimal assistance for this. Uses call light appropriately for needs. Pt on 6-8l vian humidified nc, sats >90%. Pt nsr on monitor, bp stable. Pt had one small bm and multiple episodes of mucousy bm. Pt required one dose of prn pain medication. Afebrile. Skin jaundiced and unchanged. Call light w/ in reach, plan of care ongoing.
[2024-02-09] MEDS ORDERED: Acetaminophen 325 MG TABLET PO PRN (08:35)
--- NOTE | 2024-02-09 12:29 | NUR ---
BEDSIDE PARACENTESIS DR. WEAVER AT BEDSIDE, EXPLAINED PROCEDURE AND GOT CONSENT BEFORE PERFORMING BEDSIDE PARACENTESIS. 3.5 L DRAINED. CYTOLOGY TO BE ORDERED
[2024-02-09 13:41] LABS: Automated BF RBC Count 0.002 M/mm3 (0-0); Automated BF WBC Count 0.093 K/mm3 (0-999)
[2024-02-09 13:43] LABS: Body Fluid WBC Count 93 /mm3 (0-999); RBC Count, Body Fluid 2000 /mm3 (0-0)
[2024-02-09] MEDS ORDERED: TPN Consult Notification XX ONE (13:55)
[2024-02-09 13:59] LABS: Albumin, Body Fluid 0.7 g/dL; Protein, Body Fluid 1.2 g/dL
[2024-02-09 14:13] LABS: Glucose, Body Fluid 145 mg/dL
[2024-02-09 14:30] LABS: Total Cell Count, Body Fluid 100
[2024-02-09] MEDS ORDERED: SODIUM CHLORIDE IV SCH (17:00)
[2024-02-09] MEDS ORDERED: CALCIUM GLUCONATE IV SCH (17:00)
[2024-02-09] MEDS ORDERED: SODIUM ACETATE IV SCH (17:00)
[2024-02-09] MEDS ORDERED: [UNRECOGNIZED DRUG - OTHER] IV SCH (17:00)
--- NOTE | 2024-02-09 17:29 | NUR ---
SHIFT SUMMARY Pt up with standby assist to manage lines. Worked with PT/OT. Dr. Miller consulted for bedside paracentesis, took off 3.5L, samples sent to lab. O2 titrated down throughout the day. Resting in bed with mother at bedside.
--- NOTE | 2024-02-09 20:03 | NUR ---
Assumed care of pt at 1900 Pt resting on bed w/ family at bedside. Pt aox4, pleasant and cooperative w/ care. Pt reports relief after paracentesis procedure today. Lungs clear, on 2l via humidified nc. Sinus tach rate of 100s on manager cardiac. Bp stable. Pt medicated per emar and sts pain in managed at this time. Afebrile. Pt up to rr in room w/ line assist- steady gait. Skin and sclera remains jaundiced. Puncture to L. abdomen from procedure today, abd pad applied. Drainage controlled. Pt has octreotid and protonix drips infusing as ordered. Call light w/ in reach and pt using appropriately. Plan of care ongoing.
[2024-02-09 21:53] LABS: Hematocrit 21.6 % (37.0-53.0); Hemoglobin 7.2 g/dL (13.5-17.5); Mean Corpuscular HGB 37.3 pg (26.0-34.0); Mean Corpuscular HGB Conc 33.3 g/dL (31.5-36.5); Mean Corpuscular Volume 112 fL (80-100); Mean Platelet Volume 12.7 fL (9.1-12.4); Platelet Count 147 K/mm3 (150-400); RDW Coefficient Variation 18.8 % (11.7-14.2); RDW Standard Deviation 77.7 fL (35.1-46.3); Red Blood Cell Count 1.93 M/mm3 (4.30-5.90)
[2024-02-09 22:37] LABS: BAND PERCENT MAN 4 % (0-8); BASOPHILS ABSOLUTE MAN 0.33 K/mm3 (0.00-0.23); BASOPHILS PERCENT MAN 2 % (0-2); EOSINOPHILS ABSOLUTE MAN 0.33 K/mm3 (0.00-0.68); EOSINOPHILS PERCENT MAN 2 % (0-6); LYMPHOCYTES % ATYPICAL MANUAL 2 % (0-0); LYMPHOCYTES ABSOLUTE MAN 1.01 K/mm3 (0.84-5.20); LYMPHOCYTES PERCENT MAN 4 % (21-46); METAMYELOCYTE ABSOLUTE MAN 0.33 K/mm3 (0.00-0.00); METAMYELOCYTE PERCENT MAN 2 % (0-0); MONOCYTES ABSOLUTE MAN 1.69 K/mm3 (0.16-1.47); MONOCYTES PERCENT MAN 10 % (4-13); MYELOCYTE ABSOLUTE MAN 0.67 K/mm3 (0.00-0.00); MYELOCYTE PERCENT MAN 4 % (0-0); SEG NEUTROPHILS PERCENT MAN 70 % (41-73); TOTAL CELLS COUNTED 100
[2024-02-10] VITALS (25 sets, daily range): BP systolic 120–190; BP diastolic 86–173
[2024-02-10 03:25] LABS: Hematocrit 23.5 % (37.0-53.0); Hemoglobin 7.8 g/dL (13.5-17.5); Mean Corpuscular HGB 36.8 pg (26.0-34.0); Mean Corpuscular HGB Conc 33.2 g/dL (31.5-36.5); Mean Corpuscular Volume 111 fL (80-100); Mean Platelet Volume 12.7 fL (9.1-12.4); NRBC ABSOLUTE 0.02 K/mm3 (0.00-0.02); NRBC Auto 0.1 /100 WBC (0.0-0.2); Platelet Count 160 K/mm3 (150-400); RDW Coefficient Variation 18.7 % (11.7-14.2); RDW Standard Deviation 76.3 fL (35.1-46.3); Red Blood Cell Count 2.12 M/mm3 (4.30-5.90); White Blood Cell Count 19.31 K/mm3 (4.00-11.30)
[2024-02-10 03:41] LABS: International Normalized Ratio 1.51; Prothrombin Time Results 15.7 Sec (9.7-11.5)
[2024-02-10 03:50] LABS: BAND PERCENT MAN 3 % (0-8); BASOPHILS ABSOLUTE MAN 0.19 K/mm3 (0.00-0.23); BASOPHILS PERCENT MAN 1 % (0-2); EOSINOPHILS ABSOLUTE MAN 0.19 K/mm3 (0.00-0.68); EOSINOPHILS PERCENT MAN 1 % (0-6); LYMPHOCYTES ABSOLUTE MAN 1.73 K/mm3 (0.84-5.20); LYMPHOCYTES PERCENT MAN 9 % (21-46); METAMYELOCYTE ABSOLUTE MAN 0.19 K/mm3 (0.00-0.00); METAMYELOCYTE PERCENT MAN 1 % (0-0); MONOCYTES ABSOLUTE MAN 1.93 K/mm3 (0.16-1.47); MONOCYTES PERCENT MAN 10 % (4-13); MYELOCYTE ABSOLUTE MAN 0.77 K/mm3 (0.00-0.00); MYELOCYTE PERCENT MAN 4 % (0-0); NEUTROPHILS ABSOLUTE MAN 14.28 K/mm3 (1.96-9.15); SEG NEUTROPHILS PERCENT MAN 71 % (41-73); TOTAL CELLS COUNTED 100
[2024-02-10 04:05] LABS: Magnesium, Blood 2.1 mg/dL (1.6-2.4)
[2024-02-10 04:06] LABS: Alanine Aminotransfer (ALT/SGP 55 U/L (12-78); Albumin, Blood 3.5 g/dL (3.4-5.0); Albumin/Globulin Ratio 1.8 (0.8-1.8); Alk Phos 225 U/L (50-136); Anion Gap 10 mmol/L (3-11); Aspartate Aminotrans (AST/SGOT 110 U/L (12-37); Bilirubin, Direct 15.3 mg/dL (0.0-0.3); Bilirubin, Indirect 6.6 mg/dL (0.1-0.7); Bilirubin, Total 21.9 mg/dL (0.1-1.0); Blood Urea Nitrogen 40 mg/dL (8-24); CO2, Blood 25 mmol/L (21-32); Calcium, Blood 8.3 mg/dL (8.5-10.1); Chloride, Blood 110 mmol/L (98-108); Creatinine, Blood 2.11 mg/dL (0.60-1.20); Glomerular Filtration Rate 42 (60-); Glucose, Blood 144 mg/dL (70-99); Phosphorus, Blood 2.6 mg/dL (2.5-4.9); Potassium, Blood 3.6 mmol/L (3.5-5.5); Sodium, Blood 141 mmol/L (136-145); Total Protein, Blood 5.5 g/dL (6.4-8.2); Triglycerides 114 mg/dL (30-140)
--- NOTE | 2024-02-10 06:35 | NUR ---
END OF SHIFT SUMMARY. NO ACUTE EVENTS OVERNIGHT. NO CHANGE IN MENTATION. PT UP FREQUENTLY TO RESTROOM. REQUIRED ON DOSE OF PRN PAIN MEDICATION W/ GOOD EFFECT. VSS. PT O2 INCREASED OVERNIGHT FROM 2L TO 5L TO MAINTAIN SATS >90%. CALL LIGHT W/ IN REACH. PLAN OF CARE ONGOING
[2024-02-10 13:42] LABS: Hematocrit 23.5 % (37.0-53.0); Hemoglobin 7.8 g/dL (13.5-17.5); Mean Corpuscular HGB 37.7 pg (26.0-34.0); Mean Corpuscular HGB Conc 33.2 g/dL (31.5-36.5); Mean Corpuscular Volume 114 fL (80-100); Mean Platelet Volume 12.8 fL (9.1-12.4); NRBC ABSOLUTE 0.02 K/mm3 (0.00-0.02); NRBC Auto 0.1 /100 WBC (0.0-0.2); Platelet Count 143 K/mm3 (150-400); RDW Coefficient Variation 18.5 % (11.7-14.2); RDW Standard Deviation 77.4 fL (35.1-46.3); Red Blood Cell Count 2.07 M/mm3 (4.30-5.90); White Blood Cell Count 17.55 K/mm3 (4.00-11.30)
--- NOTE | 2024-02-10 13:55 | NUR ---
SIGNIFICANT EVENT Patient noted to be acutely desaturaing on monitor. In the room patient was tachypnic and diaphoretic, stating that he felt "wrong". O2 increased from 1L NC to 6L NC. Lung sounds rhonchi on the left side. Dr. Amezcua called and came to bedside to assess. CXR, EKG, LABS ordered. diuretic given. Pt made ICU status.
[2024-02-10] MEDS ORDERED: Bumetanide 0.25 MG/ML 4ML ViaL IV SCH (14:00)
[2024-02-10 14:04] LABS: BAND PERCENT MAN 5 % (0-8); BASOPHILS ABSOLUTE MAN 0.17 K/mm3 (0.00-0.23); BASOPHILS PERCENT MAN 1 % (0-2); EOSINOPHILS ABSOLUTE MAN 0.17 K/mm3 (0.00-0.68); EOSINOPHILS PERCENT MAN 1 % (0-6); LYMPHOCYTES ABSOLUTE MAN 0.87 K/mm3 (0.84-5.20); LYMPHOCYTES PERCENT MAN 5 % (21-46); METAMYELOCYTE ABSOLUTE MAN 0.17 K/mm3 (0.00-0.00); METAMYELOCYTE PERCENT MAN 1 % (0-0); MONOCYTES PERCENT MAN 8 % (4-13); MYELOCYTE ABSOLUTE MAN 0.35 K/mm3 (0.00-0.00); MYELOCYTE PERCENT MAN 2 % (0-0); NEUTROPHILS ABSOLUTE MAN 14.39 K/mm3 (1.96-9.15); SEG NEUTROPHILS PERCENT MAN 77 % (41-73); TOTAL CELLS COUNTED 100
[2024-02-10 14:11] LABS: Albumin, Blood 3.6 g/dL (3.4-5.0); Albumin/Globulin Ratio 1.6 (0.8-1.8); Bilirubin, Total 20.6 mg/dL (0.1-1.0); Bun/Creatinine Ratio 16.8 (12.0-20.0); Calcium, Blood 8.5 mg/dL (8.5-10.1); Creatinine, Blood 2.08 mg/dL (0.60-1.20); Globulin, Blood 2.3 g/dL (2.2-4.0); Potassium, Blood 3.4 mmol/L (3.5-5.5); Total Protein, Blood 5.9 g/dL (6.4-8.2)
[2024-02-10] MEDS ORDERED: Potassium Chl 20MEQ/Water100ML 100 ML IV SCH (15:30)
--- NOTE | 2024-02-10 17:47 | NUR ---
SHIFT SUMMARY Pt ambulating in unit during beginning of shift, in good spirits and improving medically. See event note for issues during the afternoon. Diuresing well, oxygenation improving towards end of shift. Patients mother is at bedside and was updated on patient status/plan of care.
[2024-02-11] VITALS (9 sets, daily range): BP systolic 135–168; BP diastolic 88–104
--- NOTE | 2024-02-11 06:21 | NUR ---
SHIFT SUMMARY NO ACUTE EVENTS THIS SHIFT, MEDICATED X2 WITH MORPHINE 1 MG IVP PRN PAIN TO ABD PER EMAR, PLACED CONDOM CATH PER PT REQUEST FOR REST AND FEELING WEAK AND SOB WITH WALKING, VOIDS WITHOUT DIFFICULTY, AFEBRILE, ALERT AND ORIENTED X4, TPN INFUSING AT 75 ML/HR, PROTONIX INFUSING AT 10 ML/HR TO RIGHT PICC, SIDE RAILS UP X2 CALL LIGHT IN REACH
[2024-02-11 06:56] LABS: BASOPHILS ABSOLUTE AUTO 0.19 K/mm3 (0.00-0.23); BASOPHILS PERCENT AUTO 1 % (0-2); EOSINOPHILS ABSOLUTE AUTO 0.23 K/mm3 (0.00-0.68); EOSINOPHILS PERCENT AUTO 1 % (0-6); Hematocrit 23.6 % (37.0-53.0); IMMATURE GRAN ABSOLUTE AUTO 1.08 K/mm3 (0.00-0.10); IMMATURE GRAN PERCENT AUTO 5 % (0-1); LYMPHOCYTES PERCENT AUTO 5 % (21-46); MONOCYTES ABSOLUTE AUTO 2.33 K/mm3 (0.16-1.47); MONOCYTES PERCENT AUTO 11 % (4-13); Mean Corpuscular HGB 38.1 pg (26.0-34.0); Mean Corpuscular HGB Conc 33.9 g/dL (31.5-36.5); Mean Corpuscular Volume 112 fL (80-100); Mean Platelet Volume 12.9 fL (9.1-12.4); NEUTROPHILS ABSOLUTE AUTO 15.67 K/mm3 (1.96-9.15); NEUTROPHILS PERCENT AUTO 76 % (41-73); NRBC ABSOLUTE 0.02 K/mm3 (0.00-0.02); NRBC Auto 0.1 /100 WBC (0.0-0.2); Platelet Count 146 K/mm3 (150-400); RDW Coefficient Variation 18.4 % (11.7-14.2); RDW Standard Deviation 75.6 fL (35.1-46.3)
[2024-02-11 07:26] LABS: Albumin, Blood 3.5 g/dL (3.4-5.0); Albumin/Globulin Ratio 1.7 (0.8-1.8); Bilirubin, Direct 12.8 mg/dL (0.0-0.3); Bilirubin, Indirect 5.8 mg/dL (0.1-0.7); Bilirubin, Total 18.6 mg/dL (0.1-1.0); Bun/Creatinine Ratio 14.4 (12.0-20.0); Calcium, Blood 8.3 mg/dL (8.5-10.1); Creatinine, Blood 2.08 mg/dL (0.60-1.20); Globulin, Blood 2.1 g/dL (2.2-4.0); Magnesium, Blood 1.9 mg/dL (1.6-2.4); Phosphorus, Blood 2.4 mg/dL (2.5-4.9); Potassium, Blood 3.2 mmol/L (3.5-5.5); Total Protein, Blood 5.6 g/dL (6.4-8.2)
[2024-02-11] MEDS ORDERED: Potassium Phosphate Dibasic 20 MM in Dextrose 5% 500 ML IV ONE (07:50)
[2024-02-11] MEDS ORDERED: TPN Consult Notification XX ONE (12:50)
[2024-02-11] MEDS ORDERED: Potassium Chl 20MEQ/Water100ML 100 ML IV SCH (14:00)
--- NOTE | 2024-02-11 14:42 | NUR ---
ASSUMED CARE OF PATIENT AT APPROXIMATELY 0700. REPORT RECEIVED FROM OSMEL MARINO. PT AWAKE IN ROOM, WATCHING TELEVISION. INTERACTING WITH STAFF APPROPRIATELY DURING BEDSIDE REPORT. CONINTOUS CARDIAC MONITORING IN PLACE SHOWING STACH, BP STABLE. ON 5LPM O2 VIA NC WITH O2 SATURATION > 92%. CONDOM CATH IN PLACE DRAINING DARK YELLOW URINE TO GRAVITY. NO ACUTE NEEDS IDENTIFIED AT THIS TIME. SEE SHIFT ASSESSMENT FOR FULL DETAILS.
[2024-02-11] MEDS ORDERED: [UNRECOGNIZED DRUG - OTHER] IV SCH (17:00)
[2024-02-11] MEDS ORDERED: SODIUM ACETATE IV SCH (17:00)
[2024-02-11] MEDS ORDERED: SODIUM CHLORIDE IV SCH (17:00)
[2024-02-11] MEDS ORDERED: CALCIUM GLUCONATE IV SCH (17:00)
--- NOTE | 2024-02-11 17:22 | NUR ---
PATIENT REMAINED a&oX4 THROUGHOUT SHIFT, VS STABLE, THORACENTESIS DONE WITH 4.9 LITERS TAKEN OFF, CONDOM CATH IN PLACCE & GOOD uop RECORDED, MOM AT BEDSIDE ALLL DAY, UPDATES GIVEN, AND ALL QUESTIONS ANSWERED, NO BM, CPN INFUSING, POTASSIUM & PHOSPHORUS REPLACED, WILL CONTINUE TO MONITOR AND REPORT TO ONCOMING RN.
--- NOTE | 2024-02-11 21:07 | NUR ---
THIS RN ASSUMED CARE OF PT AT 1900. PT IS ALERT AND ORIENTED X4, FOLLOWING COMMANDS AND VERY PLEASANT. PT SOUNDS CLEAR/DIMINISHED ON 4L NC SATTING >95%, PT DENIES SHORTNESS OF BREATH. PT HEART RATE IS IN THE 100s, PT DENIES CHEST PAIN AND BLOOD PRESSURE STABLE AT 141/84. PT DID GET 4.9L TAP DONE TODAY, BUT PT STATES THEY ARE FEELING BETTER. ABDOMEN IS STILL DISTENDED AND PT STILL JAUNDICE. NO OTHER INTERVENTIONS AT THIS TIME. PLAN OF CARE CONTINUED.
[2024-02-12] VITALS (13 sets, daily range): BP systolic 127–158; BP diastolic 67–108
[2024-02-12 04:06] LABS: BASOPHILS ABSOLUTE AUTO 0.16 K/mm3 (0.00-0.23); BASOPHILS PERCENT AUTO 1 % (0-2); EOSINOPHILS ABSOLUTE AUTO 0.24 K/mm3 (0.00-0.68); EOSINOPHILS PERCENT AUTO 1 % (0-6); Hematocrit 23.2 % (37.0-53.0); Hemoglobin 7.8 g/dL (13.5-17.5); IMMATURE GRAN ABSOLUTE AUTO 0.89 K/mm3 (0.00-0.10); IMMATURE GRAN PERCENT AUTO 4 % (0-1); LYMPHOCYTES ABSOLUTE AUTO 1.01 K/mm3 (0.84-5.20); LYMPHOCYTES PERCENT AUTO 5 % (21-46); MONOCYTES ABSOLUTE AUTO 2.49 K/mm3 (0.16-1.47); MONOCYTES PERCENT AUTO 12 % (4-13); Mean Corpuscular HGB 37.3 pg (26.0-34.0); Mean Corpuscular HGB Conc 33.6 g/dL (31.5-36.5); Mean Corpuscular Volume 111 fL (80-100); NEUTROPHILS ABSOLUTE AUTO 16.64 K/mm3 (1.96-9.15); NEUTROPHILS PERCENT AUTO 78 % (41-73); NRBC ABSOLUTE 0.02 K/mm3 (0.00-0.02); NRBC Auto 0.1 /100 WBC (0.0-0.2); Platelet Count 126 K/mm3 (150-400); RDW Coefficient Variation 17.7 % (11.7-14.2); RDW Standard Deviation 72.3 fL (35.1-46.3); Red Blood Cell Count 2.09 M/mm3 (4.30-5.90); White Blood Cell Count 21.43 K/mm3 (4.00-11.30)
[2024-02-12 04:16] LABS: Mean Platelet Volume 13.3 fL (9.1-12.4)
[2024-02-12 04:23] LABS: Albumin, Blood 3.7 g/dL (3.4-5.0); Albumin/Globulin Ratio 1.9 (0.8-1.8); Bilirubin, Direct 11.6 mg/dL (0.0-0.3); Bilirubin, Indirect 5.6 mg/dL (0.1-0.7); Bilirubin, Total 17.2 mg/dL (0.1-1.0); Bun/Creatinine Ratio 12.3 (12.0-20.0); Creatinine, Blood 2.04 mg/dL (0.60-1.20); Globulin, Blood 1.9 g/dL (2.2-4.0); Magnesium, Blood 1.5 mg/dL (1.6-2.4); Potassium, Blood 3.2 mmol/L (3.5-5.5); Total Protein, Blood 5.6 g/dL (6.4-8.2)
[2024-02-12] MEDS ORDERED: Magnesium Sulf 2 GM/Water 50ML 50 ML IV ONE (04:35)
[2024-02-12] MEDS ORDERED: Potassium Chl 20MEQ/Water100ML 100 ML IV SCH (04:35)
[2024-02-12] MEDS ORDERED: Mag Sulfate 1 GM/D5% 100ML 100 ML IV STA (05:11)
[2024-02-12] MEDS ORDERED: Potassium Chl 10MEQ/Water100ML 100 ML IV SCH (05:15)
--- NOTE | 2024-02-12 05:20 | NUR ---
PT SUMMARY PT IS ALERT AND ORIENTED, PT IS GETTING STRONGER. NO NEW EVENTS TO REPORT OVERNIGHT. PT MAG AND POTASSIUM CAME BACK LOW, NOTIFIED, NEW ORDERS PLACED FOR ELECTROLYTE REPLACEMENT. PLAN OF CARE CONTINUED.
[2024-02-12] MEDS ORDERED: Pantoprazole Sodium 40 MG Tab PO SCH (06:00)
[2024-02-12] MEDS ORDERED: Spironolactone 25 MG Tab PO SCH (09:00)
[2024-02-12] MEDS ORDERED: TPN Consult Notification XX ONE (12:20)
--- NOTE | 2024-02-12 16:53 | NUR ---
TRANSFER DEVANG: PT ARRIVED TO U8 AT APPROX 1615 FROM ICU13. PT ARRIVES A&OX4. ANSWERING QUESTIONS AND FOLLOWING COMMANDS. PT ON 4L NC MAINTAINING O2 SATS >95%. PT REPORTING SOB FROM PRESSURE IN STOMACH. SINUS IN THE 90'S. DENIES ANY CP BUT FEELS PRESSURE IN HIS CHEST AREA FROM HIS STOMACH. PT APPEARS JAUNDICE. VSS. MAP >65. PT MEDICATED WITH TYLENOL FOR PAIN AND PROVIDED WITH A HEAT PAD. DENIES ANY FURTHER NEEDS AT THIS TIME. CALL LIGHT IN REACH. WILL CONTINUE TO CARE FOR PT TILL END OF SHIFT.
--- NOTE | 2024-02-12 16:56 | NUR ---
GAVE REPORT TO MASON SEGAL PT WENT TO [facility] 8 APPROXIMATELY 1630.
[2024-02-12] MEDS ORDERED: FOLIC ACID IV SCH (17:00)
[2024-02-12] MEDS ORDERED: [UNRECOGNIZED DRUG - OTHER] IV SCH (17:00)
[2024-02-12] MEDS ORDERED: CALCIUM GLUCONATE IV SCH (17:00)
[2024-02-12] MEDS ORDERED: THIAMINE HCL IV SCH (17:00)
--- NOTE | 2024-02-12 20:28 | NUR ---
THIS RN ASSUMED CARE OF PT AT 1900. PT IS ALERT AND ORIENTED X4, AND IS VERY PLEASANT. MOM IS ALSO AT BEDSIDE. PT HEART RATE IS IN THE 80-100s, PT DENIES CHEST PAIN AND BLOOD PRESSURE STABLE AT 140/88. PT SOUNDS CLEAR/DIMINISHED, ON 4L NC SATTING >95% AND PT DENIES SHORTNESS OF BREATH. PT IS STILL JAUNDICE AND ABDOMEN IS VERY DISTENDED. PT IS GETTING CPN. NO OTHER INTERVENTIONS AT THIS TIME. PLAN OF CARE CONTINUED.
[2024-02-13] VITALS: BP 141/84
[2024-02-13 04:00] VITALS: BP 155/89
[2024-02-13 04:05] LABS: Hematocrit 25.8 % (37.0-53.0); Hemoglobin 8.6 g/dL (13.5-17.5)
[2024-02-13 04:19] LABS: Albumin/Globulin Ratio 1.8 (0.8-1.8); Bilirubin, Direct 11.6 mg/dL (0.0-0.3); Bilirubin, Indirect 5.1 mg/dL (0.1-0.7); Bilirubin, Total 16.7 mg/dL (0.1-1.0); Calcium, Blood 8.4 mg/dL (8.5-10.1); Creatinine, Blood 2.06 mg/dL (0.60-1.20); Globulin, Blood 2.2 g/dL (2.2-4.0); Magnesium, Blood 1.9 mg/dL (1.6-2.4); Phosphorus, Blood 3.8 mg/dL (2.5-4.9); Potassium, Blood 3.6 mmol/L (3.5-5.5); Total Protein, Blood 6.2 g/dL (6.4-8.2)
--- NOTE | 2024-02-13 05:45 | NUR ---
PT SUMMARY PT IS ALERT AND ORIENTED, LAYING IN BED SLEEPING. PT REPORTED GETTING A COUPLE MORE HOURS OF SLEEP THAN USUAL LAST NIGHT. NO NEW EVENTS TO REPORT OVERNIGHT. PLAN OF CARE CONTINUED.
[2024-02-13 07:31] VITALS: BP 150/95
[2024-02-13 16:36] VITALS: BP 145/84
--- NOTE | 2024-02-13 18:39 | NUR ---
PT HAS BEEN A STAND BY ASSIST T/O THE DAY. PT CONTINUES WITH POOR APPETITE, HE IS ABLE TO EAT APPROXIMATELY 50% OF HIS TRAYS. MOTHER EXPRESSED CONCERN THAT FOOD IS "TOO ACIDIC" FOR PT AND IS NOT PALATABLE FOR PT TO EAT, AFTER EDUCATION SHE WISHES TO SPEAK TO THE NATURAL RESOURCES SPECIALIST SHE STATES THAT DIET WAS BETTER CONTROLLED IN ICU UPON SPEAKING WITH NATURAL RESOURCES SPECIALIST ABDIFATAH HAS SAME SUGGESTIONS FOR STARCHES AND LEAN MEATS, MOTHER IS UPDATED. PT REPORTS THAT HE IS NOT ABLE TO HAVE A BOWEL MOVEMENT, HE WAS OFFERED DULCOLAX WHICH HE REFUSED, HE WAS PROVIDED WITH WARM PRUNE JUICE AND BUTTER TO ENCOURAGE BM. PT'S CONDOM CATH BECAME DISPLACED TODAY AND WAS NOT REPLACED AT THIS TIME. PT IS A/O X4, HE IS ABLE TO MAKE NEEDS KNOWN. HE REPORTS 8-9 PAIN T/O THE DAY THAT WAS TREATED WITH MORPHINE, HE WAS TREATED WITH ONE DOSE OF TYLENOL HE WAS NOTED TO BE FEBRILE THIS EVENING.
[2024-02-13 20:37] VITALS: BP 134/89
[2024-02-14] VITALS (7 sets, daily range): BP systolic 144–161; BP diastolic 76–94
[2024-02-14] MEDS ORDERED: Polyethylene Glycol 3350 17 gm PO PRN (04:15)
[2024-02-14] MEDS ORDERED: Mag Hydrox/Al Hydrox/Simeth 72 ML,Lidocaine 2% Viscous Soln 36 ML,Atropine/Scopalam/Hyo... PO PRN (04:15)
[2024-02-14 05:17] LABS: Hematocrit 24.3 % (37.0-53.0); Mean Corpuscular HGB 36.7 pg (26.0-34.0); Mean Corpuscular HGB Conc 32.9 g/dL (31.5-36.5); Mean Corpuscular Volume 112 fL (80-100); NRBC ABSOLUTE 0.02 K/mm3 (0.00-0.02); NRBC Auto 0.1 /100 WBC (0.0-0.2); Platelet Count 134 K/mm3 (150-400); RDW Coefficient Variation 17.3 % (11.7-14.2); RDW Standard Deviation 70.9 fL (35.1-46.3); Red Blood Cell Count 2.18 M/mm3 (4.30-5.90)
[2024-02-14 05:25] LABS: Mean Platelet Volume 13.8 fL (9.1-12.4)
[2024-02-14 05:35] LABS: International Normalized Ratio 1.62; Prothrombin Time Results 16.7 Sec (9.7-11.5)
[2024-02-14 05:44] LABS: Albumin, Blood 4.1 g/dL (3.4-5.0); Albumin/Globulin Ratio 1.9 (0.8-1.8); Bilirubin, Total 14.5 mg/dL (0.1-1.0); Bun/Creatinine Ratio 18.7 (12.0-20.0); Calcium, Blood 8.6 mg/dL (8.5-10.1); Creatinine, Blood 1.98 mg/dL (0.60-1.20); Globulin, Blood 2.2 g/dL (2.2-4.0); Magnesium, Blood 1.8 mg/dL (1.6-2.4); Phosphorus, Blood 3.5 mg/dL (2.5-4.9); Potassium, Blood 3.6 mmol/L (3.5-5.5); Total Protein, Blood 6.3 g/dL (6.4-8.2)
[2024-02-14 05:51] LABS: BAND PERCENT MAN 12 % (0-8); BASOPHILS ABSOLUTE MAN 0.24 K/mm3 (0.00-0.23); BASOPHILS PERCENT MAN 1 % (0-2); EOSINOPHILS PERCENT MAN 0 % (0-6); LYMPHOCYTES ABSOLUTE MAN 0.24 K/mm3 (0.84-5.20); LYMPHOCYTES PERCENT MAN 1 % (21-46); MONOCYTES ABSOLUTE MAN 2.18 K/mm3 (0.16-1.47); MONOCYTES PERCENT MAN 9 % (4-13); NEUTROPHILS ABSOLUTE MAN 21.62 K/mm3 (1.96-9.15); SEG NEUTROPHILS PERCENT MAN 77 % (41-73); TOTAL CELLS COUNTED 100
--- NOTE | 2024-02-14 06:12 | NUR ---
NOC SHIFT SUMMARY PT ORIENTED X4, ABLE TO MAKE NEEDS KNOWN, PLEASANT AND COOPERATIVE WITH CARES. SR ON TELE. VSS. ENDORSES ABD DISCOMFORT AND FEELS LIKE HE NEEDS TO HAVE BM. GAVE STOOL SOFTNER AND ENCOURAGED WALKING. GOT MIRALAX ORDERED FOR TODAY. ALSO COMPLAINTS OF STOMACH UPSET - GAVE IV ANTIEMETIC AND GI COCKTAIL. SEE EMAR FOR DETAILS. CC TO DD, ADEQUATE SAIRA URINE OUTPUT. CPN RUNNING @75ML HOUR. PLAN FOR HOPEFUL INCREASE IN PO INTAKE TODAY AND REMOVAL OF CENTRAL LINE/CPN. WILL PASS ON TO DAY RN
[2024-02-14] MEDS ORDERED: Bumetanide 1 MG Tab PO SCH (09:00)
--- NOTE | 2024-02-14 18:51 | NUR ---
SHIFT SUMMARY PT IS A&OX4, PLEASANT AND COOPERATIVE WITH CARE. BP ELEVATED SYS 150, SR 80-90 S, O2 SATS >90% ON RA, FEBRILE T-MAX 100.8. PRN 325MG PO TYLENOL ADMINISTERED WITH LITTLE EFFECT. C/O PAIN IN ABD, PRESSURE AND FEELS LIKE HE HAS TO CONSTANTLY HAVE A BM. ADMINISTERED PRN 2MG IV MORPHINE. PT HAD 2 FORMED SMALL BM S THIS SHIFT. CONDOM CATH DRAINING LARGE AMOUNTS OF SAIRA COLORED URINE. PT TOOK SHOWER THIS AFTERNOON, AND CONDOM CATH WAS REMOVED. THIS RN TOLD PT THE IMPORTANCE OF AMBULATING TO THE BR. PT IS UP INDEPENDENTLY, REMINDED TO CALL FOR NEEDS. PT IS TOLERATING A REGULAR DIET AND WAS ABLE TO HAVE SOME LUNCH AND DINNER. CPN INFUSING AT 75ML/HR. BED IN LOWEST POSITION, CALL LIGHT WITHIN REACH. PT IS ABLE TO MAKE NEEDS KNOWN.
[2024-02-14] MEDS ORDERED: TraZODone HCl 50 MG Tab PO SCH (23:20)
[2024-02-15] VITALS (9 sets, daily range): BP systolic 138–164; BP diastolic 82–108
[2024-02-15 04:21] LABS: Hematocrit 23.1 % (37.0-53.0); Hemoglobin 7.8 g/dL (13.5-17.5); Mean Corpuscular HGB Conc 33.8 g/dL (31.5-36.5); Mean Corpuscular Volume 110 fL (80-100); NRBC ABSOLUTE 0.02 K/mm3 (0.00-0.02); NRBC Auto 0.1 /100 WBC (0.0-0.2); Platelet Count 130 K/mm3 (150-400); RDW Coefficient Variation 17.5 % (11.7-14.2); RDW Standard Deviation 69.3 fL (35.1-46.3); Red Blood Cell Count 2.11 M/mm3 (4.30-5.90); White Blood Cell Count 25.28 K/mm3 (4.00-11.30)
[2024-02-15 04:23] LABS: Mean Platelet Volume 13.7 fL (9.1-12.4)
[2024-02-15 04:44] LABS: BAND PERCENT MAN 14 % (0-8); BASOPHILS ABSOLUTE MAN 0.25 K/mm3 (0.00-0.23); BASOPHILS PERCENT MAN 1 % (0-2); EOSINOPHILS ABSOLUTE MAN 0.25 K/mm3 (0.00-0.68); EOSINOPHILS PERCENT MAN 1 % (0-6); LYMPHOCYTES ABSOLUTE MAN 1.01 K/mm3 (0.84-5.20); LYMPHOCYTES PERCENT MAN 4 % (21-46); METAMYELOCYTE ABSOLUTE MAN 0.25 K/mm3 (0.00-0.00); METAMYELOCYTE PERCENT MAN 1 % (0-0); MONOCYTES ABSOLUTE MAN 2.02 K/mm3 (0.16-1.47); MONOCYTES PERCENT MAN 8 % (4-13); NEUTROPHILS ABSOLUTE MAN 21.48 K/mm3 (1.96-9.15); SEG NEUTROPHILS PERCENT MAN 71 % (41-73); TOTAL CELLS COUNTED 100
[2024-02-15 04:45] LABS: Albumin, Blood 4.3 g/dL (3.4-5.0); Bilirubin, Total 13.4 mg/dL (0.1-1.0); Bun/Creatinine Ratio 20.8 (12.0-20.0); Creatinine, Blood 2.07 mg/dL (0.60-1.20); Globulin, Blood 2.2 g/dL (2.2-4.0); Magnesium, Blood 1.8 mg/dL (1.6-2.4); Phosphorus, Blood 3.7 mg/dL (2.5-4.9); Potassium, Blood 3.6 mmol/L (3.5-5.5); Total Protein, Blood 6.5 g/dL (6.4-8.2)
--- NOTE | 2024-02-15 06:07 | NUR ---
SHIFT SUMMARY A/Ox4 AND COOPERATIVE WITH CARE. ANSWERS QUESTIONS APPROPRIATELY AND ABLE TO MAKE HIS NEEDS KNOWN. NO ACUTE EVENTS OVERNIGHT. CARDIAC, REMAINS IN SR RANGING 80-90'S WITH NO REPORTS OF CP, PRESSURE OR DIZZINESS. SBP REMAINS STABLE RANGING 140-160'S. RESPIRATORY, MAINTAINS SPO2 >90% ON RA WITH NO REPORTS OF SOB OR DYSPNEA. DOES DESAT WITH APNEIC EPISODES WHEN SLEEPING, BUT MAINTAINED O2 WHEN PLACED ON 1-2L NC. GI/, ABLE TO WALK INDEPENDENTLY TO BATHROOM. SEVERAL SMALL GREEN/YELLOWISH BM'S NOTED DURING THE NIGHT. ABD CONTINUES TO BE TENDER WITH ABD DISTENTION NOTED. CPN CONTINUES TO INFUSE THROUGHT LOLI PICC ORDERED PER EMAR. NO NEW ORDERS AT THIS TIME, WILL REPORT TO ONCOMING RN. FREDIS PEGUERO OF THIS NOTE.
[2024-02-15 10:27] LABS: International Normalized Ratio 1.61; Prothrombin Time Results 16.6 Sec (9.7-11.5)
[2024-02-15] MEDS ORDERED: Simethicone 80 MG Chew PO ONE (17:20)
[2024-02-15] MEDS ORDERED: TraMADol HCl 50 MG Tab PO PRN (17:20)
--- NOTE | 2024-02-15 17:44 | NUR ---
SHIFT SUMMARY PT A&Ox4, CALLS AND COMMUNICATES NEEDS APPROPRIATELY. BP ELEVATED WITH SBP 150'S, SINUS 90's, DENIES CP/PRESSURE. SpO2> 92% 3L VIA NC, REPORTS INTERMITTENT SOB. IND IN ROOM. C/O ABD PAIN, REFUSED IV PAIN MANAGEMENT THROUGHOUT SHIFT, ORDERS PLACED FOR PO. PARACENTESIS SITE WNL. PT HAVING MULTIPLE FORMED BMs, ASKING TO NOT RECEIVE BOWEL CARE TONIGHT. GOOD URINE OUTPUT. CPN INFUSING AT 75mls, TRYING TO ENCOURAGE PO INTAKE. NO OTHER EVENTS, WILL REPORT TO ONCOMING RN.
[2024-02-15] MEDS ORDERED: Simethicone 80 MG Chew PO PRN (18:20)
[2024-02-15] MEDS ORDERED: TraZODone HCl 50 MG Tab PO SCH (21:00)
[2024-02-16 03:45] VITALS: BP 153/96
[2024-02-16 04:03] LABS: Hematocrit 24.5 % (37.0-53.0); Hemoglobin 8.1 g/dL (13.5-17.5); Mean Corpuscular HGB 35.7 pg (26.0-34.0); Mean Corpuscular HGB Conc 33.1 g/dL (31.5-36.5); Mean Corpuscular Volume 108 fL (80-100); NRBC ABSOLUTE 0.02 K/mm3 (0.00-0.02); NRBC Auto 0.1 /100 WBC (0.0-0.2); Platelet Count 134 K/mm3 (150-400); RDW Coefficient Variation 17.3 % (11.7-14.2); RDW Standard Deviation 68.1 fL (35.1-46.3); Red Blood Cell Count 2.27 M/mm3 (4.30-5.90); White Blood Cell Count 25.59 K/mm3 (4.00-11.30)
[2024-02-16 04:20] LABS: Albumin, Blood 4.7 g/dL (3.4-5.0); Bilirubin, Total 12.8 mg/dL (0.1-1.0); Bun/Creatinine Ratio 22.4 (12.0-20.0); Calcium, Blood 9.4 mg/dL (8.5-10.1); Creatinine, Blood 1.92 mg/dL (0.60-1.20); Globulin, Blood 2.4 g/dL (2.2-4.0); Magnesium, Blood 1.8 mg/dL (1.6-2.4); Phosphorus, Blood 3.7 mg/dL (2.5-4.9); Potassium, Blood 3.6 mmol/L (3.5-5.5); Total Protein, Blood 7.1 g/dL (6.4-8.2)
[2024-02-16 04:41] LABS: BAND PERCENT MAN 11 % (0-8); BASOPHILS ABSOLUTE MAN 0.25 K/mm3 (0.00-0.23); BASOPHILS PERCENT MAN 1 % (0-2); EOSINOPHILS ABSOLUTE MAN 0.25 K/mm3 (0.00-0.68); EOSINOPHILS PERCENT MAN 1 % (0-6); LYMPHOCYTES ABSOLUTE MAN 1.02 K/mm3 (0.84-5.20); LYMPHOCYTES PERCENT MAN 4 % (21-46); MONOCYTES ABSOLUTE MAN 1.53 K/mm3 (0.16-1.47); MONOCYTES PERCENT MAN 6 % (4-13); NEUTROPHILS ABSOLUTE MAN 22.51 K/mm3 (1.96-9.15); SEG NEUTROPHILS PERCENT MAN 77 % (41-73); TOTAL CELLS COUNTED 100
--- NOTE | 2024-02-16 06:21 | NUR ---
SHIFT SUMMARY PT ALERT AND ORIENTED X4, FOLLOWS COMMANDS, ABLE TO MAKE NEEDS KNOWN, FEBRILE, TMAX 99.6F, O2 AT 3 LPM NC, SPO2>90%, VOIDS WITHOUT DIFFICULTY, AMBULATES WITHOUT ASSISTS, GAIT STEADY,X3 BM THIS SHIFT, MORPHINE 1 MG IVP X1 PER EMAR PRN ORDERS GIVEN FOR C/O ABD PAIN, EFFECTIVE FOR PAIN, NO ACUTE EVENTS THIS SHIFT, SIDE RAILS UP X2 CALL LIGHT IN REACH
[2024-02-16 07:40] VITALS: BP 165/94
[2024-02-16 11:07] VITALS: BP 151/83
[2024-02-16] MEDS ORDERED: CefTRIAXone Sodium 1,000 MG in NS 100 ML IV SCH (12:30)
[2024-02-16] MEDS ORDERED: MetroNIDAZOLE 500MG/NS 100 ml 100 ML IV SCH (13:00)
[2024-02-16 14:58] VITALS: BP 147/94
--- NOTE | 2024-02-16 18:11 | NUR ---
SHIFT SUMMARY NO ACUTE CHANGES THIS SHIFT. PT A&OX4. FEBRILE THIS AM, TYLENOL GIVEN X1. SP02>90% ON 2L NC. TELEMETRY SHOWS NSR/SINUS TACH, HR 90'S-100'S. C/O OF ABD PAIN. FREQUENTLY UP TO BATHROOM TO VOID/HAVE LOOSE BM. PASQUALE IN ROOM TO ASSESS. ABX STARTED, INFUSED PER EMAR. TPN INFUSED PER EMAR. PALLIATIVE CARE IN ROOM DISCUSSING TAMPER OPERATOR PLAN WITH PT AND PT;S MOM THIS SHIFT. MULTIPLE VISITORS THIS AFTERNOON. PT STATES STOMACH FEELS 'A LITTLE' BETTER AFTER ABX. PT SLEEPING IN ROOM, CALL LIGHT IN REACH.
[2024-02-16 20:10] VITALS: BP 155/95
[2024-02-16] MEDS ORDERED: Lactobacil 2-S.Thermo-Bifido 1 1 Cap PO SCH (21:00)
--- NOTE | 2024-02-16 21:42 | NUR ---
MD NOTIFICATION PT HAVING FEVERS. 101.1 ORAL TEMP UPON INITIAL ASSESSMENT. PT ENDORSING CHILLS, MALAISE, DIARRHEA. THIS RN DISCUSSED WITH MD. BLOOD CULTURE ORDERS x2 AND ORDER FOR BANATROL RECEIVED. PT IS ON IV ABX. PLAN FOR SYMPTOM MANAGEMENT AT THIS TIME.
[2024-02-17] VITALS (11 sets, daily range): BP systolic 98–150; BP diastolic 53–90
[2024-02-17 04:48] LABS: BASOPHILS PERCENT AUTO 0 % (0-2); EOSINOPHILS ABSOLUTE AUTO 0.05 K/mm3 (0.00-0.68); EOSINOPHILS PERCENT AUTO 0 % (0-6); Hematocrit 23.9 % (37.0-53.0); Hemoglobin 8.2 g/dL (13.5-17.5); IMMATURE GRAN ABSOLUTE AUTO 0.82 K/mm3 (0.00-0.10); IMMATURE GRAN PERCENT AUTO 3 % (0-1); LYMPHOCYTES ABSOLUTE AUTO 0.62 K/mm3 (0.84-5.20); LYMPHOCYTES PERCENT AUTO 2 % (21-46); MONOCYTES ABSOLUTE AUTO 2.39 K/mm3 (0.16-1.47); MONOCYTES PERCENT AUTO 8 % (4-13); Mean Corpuscular HGB 36.8 pg (26.0-34.0); Mean Corpuscular HGB Conc 34.3 g/dL (31.5-36.5); Mean Corpuscular Volume 107 fL (80-100); NEUTROPHILS PERCENT AUTO 87 % (41-73); NRBC ABSOLUTE 0.02 K/mm3 (0.00-0.02); NRBC Auto 0.1 /100 WBC (0.0-0.2); Platelet Count 125 K/mm3 (150-400); RDW Coefficient Variation 17.3 % (11.7-14.2); RDW Standard Deviation 67.9 fL (35.1-46.3); Red Blood Cell Count 2.23 M/mm3 (4.30-5.90); White Blood Cell Count 30.98 K/mm3 (4.00-11.30)
[2024-02-17 04:50] LABS: Mean Platelet Volume 13.5 fL (9.1-12.4)
[2024-02-17 05:05] LABS: Alanine Aminotransfer (ALT/SGP 26 U/L (12-78); Albumin, Blood 4.6 g/dL (3.4-5.0); Alk Phos 209 U/L (50-136); Anion Gap 15 mmol/L (3-11); Aspartate Aminotrans (AST/SGOT 57 U/L (12-37); Bilirubin, Total 12.5 mg/dL (0.1-1.0); Blood Urea Nitrogen 43 mg/dL (8-24); Bun/Creatinine Ratio 22.3 (12.0-20.0); CO2, Blood 27 mmol/L (21-32); Calcium, Blood 9.3 mg/dL (8.5-10.1); Chloride, Blood 95 mmol/L (98-108); Creatinine, Blood 1.93 mg/dL (0.60-1.20); Globulin, Blood 2.3 g/dL (2.2-4.0); Glomerular Filtration Rate 46 (60-); Glucose, Blood 142 mg/dL (70-99); Magnesium, Blood 1.4 mg/dL (1.6-2.4); Phosphorus, Blood 3.4 mg/dL (2.5-4.9); Potassium, Blood 3.6 mmol/L (3.5-5.5); Sodium, Blood 133 mmol/L (136-145); Total Protein, Blood 6.9 g/dL (6.4-8.2); Triglycerides 63 mg/dL (30-140)
[2024-02-17 05:34] LABS: BAND PERCENT MAN 2 % (0-8); BASOPHILS PERCENT MAN 0 % (0-2); EOSINOPHILS PERCENT MAN 0 % (0-6); LYMPHOCYTES ABSOLUTE MAN 0.61 K/mm3 (0.84-5.20); LYMPHOCYTES PERCENT MAN 2 % (21-46); MONOCYTES ABSOLUTE MAN 0.61 K/mm3 (0.16-1.47); MONOCYTES PERCENT MAN 2 % (4-13); NEUTROPHILS ABSOLUTE MAN 29.74 K/mm3 (1.96-9.15); SEG NEUTROPHILS PERCENT MAN 94 % (41-73); TOTAL CELLS COUNTED 100
[2024-02-17] MEDS ORDERED: Magnesium Sulf 2 GM/Water 50ML 50 ML IV ONE (05:35)
[2024-02-17] MEDS ORDERED: Banana Flakes/Tos 1 EA Powder Pack PO SCH (09:00)
[2024-02-17] MEDS ORDERED: Octreotide Acetate 50 MCG in NS 50 ML IV STA (13:12)
[2024-02-17] MEDS ORDERED: Pantoprazole Sodium 40 MG Injection IV ONE (13:15)
[2024-02-17] MEDS ORDERED: Octreotide Acetate 500 MCG in NS 250 ML IV SCH (13:15)
[2024-02-17] MEDS ORDERED: Pantoprazole Sodium 40 MG in NS 50 ML IV SCH (13:15)
[2024-02-17 13:30] LABS: Hematocrit 21.5 % (37.0-53.0); Hemoglobin 7.3 g/dL (13.5-17.5)
--- NOTE | 2024-02-17 15:04 | NUR ---
BLOODY EMESIS / ORDER TO TRANSFER PT A&O X4. VSS. SPO2 > 92% ON 2L NC. MONITOR SHOWING SR-ST, HR 90s-110s. PT C/O NAUSEA, MEDICATED PER EMAR X3 THIS SHIFT W/ SOME INTERMITTENT IMPROVEMENT. PT REFUSING LUNCH D/T NAUSEA, BUT REQUESTING APPLESAUCE. AFTER FEW BITES OF APPLESAUCE PT W/ 500 MLS DARK RED THICK LIQUID EMESIS. MD GIORDANO NOTIFIED. W/ ORDERS FOR IV PROTONIX & IV OCTREOTIDE GTTs (SEE ORDERS), CHECK H+H & COBRA TRANSFER D/T NO GI COVERAGE AVAILABLE. PT W/ APPROX 1850MLS BLOODY EMESIS TOTAL & 1 DARK MAROON JELLY LIKE BM. W/ ORDER FOR 2 UNITS pRBCs. 1st INFUSION TRANSFUSING AT THIS TIME. PT W/ ROOM ASSIGNMENT AT [facility] IN [place], AWAITING TRANSFER OUT VIA HELICOPTER OR PLANE.
[2024-02-17 15:13] LABS: International Normalized Ratio 1.85; Prothrombin Time Results 18.9 Sec (9.7-11.5)
--- NOTE | 2024-02-17 15:48 | NUR ---
COBRA OUT REPORT GIVEN TO ACCEPTING NURSE AT [facility] [place]. PT DEPARTED PCU VIA [employer] FLIGHT @ 1550 W/ IV PROTONIX GTT & OCTREOTIDE GTTS INFUSING. 2ND UNIT OF P RBCs COMPLETE. NO FURTHER EMESIS OR BM.
== END 2024-02-17 15:49 | disposition short-term general hospital (02) | DRG 432 ==
LOC: ER 10:02 → ICUE 14:30 → PCU 14:30 → ICUE 19:01 → PCU 02-12 16:24
PROVIDERS: Anesthesiology; Emergency Medicine; Family Medicine; Internal Medicine; Internal Medicine Gastroenterology; Internal Medicine Nephrology; Nurse Practitioner Acute Care; Student in an Organized Health Care Education/Training Program; ADMIT Family Medicine
PROC: 0DJ08ZZ Inspection of Upper Intestinal Tract, Via Natural or Artificial Opening Endoscopic (ICD-10-PCS; principal; 2024-01-26 18:45)
PROC: 02HV33Z Insertion of Infusion Device into Superior Vena Cava, Percutaneous Approach (ICD-10-PCS; 2024-01-29)
PROC: 0W9G3ZZ Drainage of Peritoneal Cavity, Percutaneous Approach (ICD-10-PCS; 2024-02-05)
PROC: 06L38CZ Occlusion of Esophageal Vein with Extraluminal Device, Via Natural or Artificial Opening Endoscopic (ICD-10-PCS; 2024-02-05 18:00)
PROC: 30233J1 Transfusion of Nonautologous Serum Albumin into Peripheral Vein, Percutaneous Approach (ICD-10-PCS; 2024-02-07)
PROC: 3E0336Z Introduction of Nutritional Substance into Peripheral Vein, Percutaneous Approach (ICD-10-PCS; 2024-02-09)
PROC: 0W9G3ZZ Drainage of Peritoneal Cavity, Percutaneous Approach (ICD-10-PCS; 2024-02-11)
PROC: 3E03329 Introduction of Other Anti-infective into Peripheral Vein, Percutaneous Approach (ICD-10-PCS; 2024-02-16)
DX: K70.31 Alcoholic cirrhosis of liver with ascites (principal); I81 Portal vein thrombosis; I85.11 Secondary esophageal varices with bleeding; K22.11 Ulcer of esophagus with bleeding; J18.9 Pneumonia, unspecified organism; J96.01 Acute respiratory failure with hypoxia; K72.00 Acute and subacute hepatic failure without coma; E87.1 Hypo-osmolality and hyponatremia; F10.239 Alcohol dependence with withdrawal, unspecified; K56.7 Ileus, unspecified; D68.4 Acquired coagulation factor deficiency; G93.49 Other encephalopathy; N17.9 Acute kidney failure, unspecified; K21.9 Gastro-esophageal reflux disease without esophagitis; G89.29 Other chronic pain; M54.50 Low back pain, unspecified; Z28.21 Immunization not carried out because of patient refusal; K72.10 Chronic hepatic failure without coma; K70.10 Alcoholic hepatitis without ascites; D64.9 Anemia, unspecified; E88.09 Other disorders of plasma-protein metabolism, not elsewhere classified; Z87.891 Personal history of nicotine dependence; Z79.899 Other long term (current) drug therapy; E87.6 Hypokalemia; F32.A Depression, unspecified; E83.39 Other disorders of phosphorus metabolism; D69.59 Other secondary thrombocytopenia; E83.42 Hypomagnesemia; R19.7 Diarrhea, unspecified
CPT/HCPCS: 31500; 36415; 36430; 36569; 49083; 71045; 71260; 74018; 74176; 74177; 76705; 76770; 80048; 80053; 80076; 80202; 81001; 82042; 82103; 82105; 82140; 82248; 82570; 82607; 82746; 82945; 82947; 83605; 83690; 83735; 83880; 84100; 84132; 84157; 84300; 84478; 84484; 85014; 85018; 85025; 85610; 86015; 86038; 86381; 86704; 86708; 86803; 86850; 86900; 86901; 86923; 87040; 87070; 87077; 87186; 87205; 87340; 88108; 88305; 89051; 93005; 93010; 93306; 94002; 94760; 94762; 96365; 96375; 96376; 97110; 97116; 97161; 97166; 97530; 97535; 99285-25; A9270; C1751; J0171; J0330; J0360; J0456; J0612; J0696; J0780; J1100; J1885; J1940; J2060; J2270; J2354; J2371; J2405; J2470; J2704; J2765; J3010; J3370; J3411; J3475; J3480; J7040; J7050; J7060; J7120; J7131; P9016; P9047; Q9967